=== PATIENT | female | born 1965 | race Caucasian/White ===

== ENCOUNTER 2016-09-16 06:34 | Day surgery (SDC) | payer OTHER ==
[~2016-09-16 06:34] MED LIST: Lactated Ringers 1,000 ML IV SCH
[2016-09-16 06:54] VITALS: O2SAT 100
[2016-09-16] MEDS ORDERED: Lactated Ringers 1,000 ML IV ONE (07:58)
[2016-09-16] MEDS ORDERED: DIPRIVAN 200 MG/20 ML IV ONE (08:00)
[2016-09-16] MEDS ORDERED: Ketamine HCl 50 MG/ML IJ ONE (08:00)
--- NOTE | 2016-09-16 08:05 | OP ---
SURGERY DATE/TIME: 09/16/2016 0723 PREOPERATIVE DIAGNOSES: 1) Diarrhea. 2) Change in bowel habits. POSTOPERATIVE DIAGNOSIS: Melanosis coli otherwise normal colon. PROCEDURE: Colonoscopy. SURGEON: Dr. Moody. ANESTHESIA: MAC. Medications given by anesthesia department. HISTORY: The patient is a 51 year-old white female presenting now for colonoscopic evaluation. She reports that she has been having trouble with diarrhea and at times constipation. She reports that the stools have been so bad that she had fecal incontinence. She dates this back to the time that she had her gallbladder removed. The patient was felt the need to have endoscopic evaluation. She was appraised of the risks of the procedure including the risk of perforation, phlebitis, untoward reaction to medication, bleeding, and missed lesions. The patient verbalized her understanding and desired to have the procedure performed. DESCRIPTION OF PROCEDURE: The patient was placed in left lateral decubitus position. She had continuous pulse oximetry, ECG monitoring, intermittent blood pressure monitoring, and tidal CO2 monitoring during the examination. A digital rectal examination was performed and revealed normal anal sphincter tone and no masses. The flexible Olympus pediatric colonoscope was used to intubate the rectum. A view of the colon was developed sequentially to the cecum. Upon insertion and withdrawal, including a retroflex view in the rectum, there was noted melanosis coli changes but otherwise no other mucosal lesions were noted. The scope was removed from the patient who tolerated the procedure well and was sent back to OP recovery in good condition.
[2016-09-16 10:26] VITALS: BP 109/75; PULSE 76
== END 2016-09-16 09:20 | disposition home or self-care (01) ==
LOC: SDC 06:34
PROVIDERS: ATTEND Family Medicine
PROC: 0DJD8ZZ Inspection of Lower Intestinal Tract, Via Natural or Artificial Opening Endoscopic (ICD-10-PCS; principal; 2016-09-16)
DX: L81.4 Other melanin hyperpigmentation (principal); R19.4 Change in bowel habit
CPT/HCPCS: 00810; J2704

== ENCOUNTER 2018-01-06 14:44 | Emergency (ER) | payer OTHER ==
[2018-01-06] MEDS ORDERED: Phenergan 25 MG INJ IV ONE (15:17)
[2018-01-06] MEDS ORDERED: Sodium Chloride 0.9% 1000 ML 1,000 ML IV STA ×2 (15:17→15:24)
[2018-01-06] MEDS ORDERED: MORPHINE SULFATE 4 MG INJ IV ONE (15:18)
[2018-01-06] MEDS ORDERED: Phenergan 25 MG INJ ONE (15:21)
[2018-01-06] MEDS ORDERED: Sodium Chloride 0.9% 1000 ML 1,000 ML ONE ×2 (15:22→16:09)
[2018-01-06] MEDS ORDERED: MORPHINE SULFATE 4 MG INJ ONE (15:22)
--- NOTE | 2018-01-06 15:24 | ERPHSYRPT ---
- History of Present Illness Time Seen by Provider: 01/06/18 15:11 Historian: patient Exam Limitations: no limitations Patient Subjective Stated Complaint: pt reports diarrhea beginning last night- states it was severe in nature-states that at times she has abd pain that is severe and wraps around her waist-denies pain at thsi itme Triage Nursing Assessment: pt pink warm and [id number] tender to palp-soft- resp easy and nonlabored Physician History: 53-year-old white female with history of migraines, hypothyroidism, diverticulosis, gallbladder disease, arthritis, degenerative disc disease, depression. Arrives with complaint of epigastric pain since this morning. Patient states she began to have frequent bouts of diarrhea last night and this morning she began to have epigastric pain this began around 7:00 this is been intermittent she is not vomiting. Past medical history includes migraines, hypothyroid, diverticulosis, gallbladder disease, arthritis, degenerative disc disease, depression. Past surgical history includes hysterectomy, tubal ligation, lumpectomy, orthopedic surgery, neck surgery 2 (fusion, tonsils. Timing/Duration: today Activities at Onset: none Quality: cramping Abdominal Pain Onset Location: epigastric Pain Radiation: no radiation Severity of Pain-Max: moderate Severity of Pain-Current: mild Modifying Factors: Worsens With: analgesics, antacids, breathing, coughing, defecating, eating, exercise, lying down, movement, palpation, rest, urinating, vomiting, position, walking Associated Symptoms: diarrhea, No back, No chest pain, No diaphoresis, No fever/ chills, No fatigue, No headache, No heartburn, No loss of appetite, No nausea, No neck pain, No rash, No shortness of breath, No syncope, No vomiting, No weakness Previous symptoms: no prior history Allergies/Adverse Reactions: No Known Drug Allergies Allergy (Verified 01/06/18 14:56) Home Medications: Levothyroxine Sodium 50 Mcg [Synthroid 50 Mcg] 50 mcg PO DAILY 09/21/13 [ History] Lorazepam 1 mg [Ativan 1 MG] 1 mg PO HS 09/21/13 [History] Topiramate 100 mg [Topamax 100 MG] 100 mg DAILY 05/10/15 [History] Topiramate [Topamax] 100 mg PO HS 05/10/15 [History] Fluoxetine HCl [Prozac] 60 mg PO DAILY 01/06/18 [History] LORazepam [Lorazepam] 2 mg PO HS 01/06/18 [History] Tizanidine HCl [Zanaflex] 4 mg PO UD 01/06/18 [History] Hx Tetanus, Diphtheria Vaccination/Date Given: No Hx Influenza Vaccination/Date Given: Yes Hx Pneumococcal Vaccination/Date Given: No Immunizations Up to Date: Yes - Review of Systems Constitutional: No Fever, No Chills Eyes: No Symptoms Ears, Nose, & Throat: No Symptoms Respiratory: No Cough, No Dyspnea Cardiac: No Symptoms Abdominal/Gastrointestinal: Abdominal Pain, No Nausea, No Vomiting, No Constipation, No Hematemesis, No Hematochezia, No Melena, No Dysphagia, No Appetite Changes Genitourinary Symptoms: No Dysuria Musculoskeletal: No Back Pain, No Neck Pain Skin: No Rash Neurological: No Dizziness, No Focal Weakness, No Sensory Changes Psychological: No Symptoms Endocrine: No Symptoms All Other Systems: Reviewed and Negative - Past Medical History Pertinent Past Medical History: Yes Neurological History: Migraines ENT History: No Pertinent History Cardiac History: No Pertinent History Respiratory History: No Pertinent History Endocrine Medical History: Hypothyroidism Musculoskeletal History: Arthritis, Degenerative Disk Disease GI Medical History: Diverticulosis, Gallbladder Disease History: Other Psycho-Social History: Depression Female Reproductive Disorders: No Pertinent History Other Medical History: MITRAL VALVE - Past Surgical History Past Surgical History: Yes Neuro Surgical History: No Pertinent History Cardiac: No Pertinent History Respiratory: No Pertinent History Gastrointestinal: Cholecystectomy Genitourinary: No Pertinent History Musculoskeletal: Orthopedic Surgery Female Surgical History: Hysterectomy, Tubal Ligation, Lumpectomy Other Surgical History: TONSILS, 2 NECK FUSIONS - Social History Smoking Status: Never smoker Exposure to second hand smoke: No Drug Use: none Patient Lives Alone: No - Female History Hx Now: No - Nursing Vital Signs Nursing Vital Signs: Initial Vital Signs Temperature 99.3 F 01/06/18 14:52 Pulse Rate 68 01/06/18 14:52 Respiratory Rate 18 01/06/18 14:52 Blood Pressure 125/74 01/06/18 14:52 O2 Sat by Pulse Oximetry 97 01/06/18 14:52 Pain Scale Pain Intensity 2 - Physical Exam General Appearance: mild distress Eye Exam: PERRL/EOMI, eyes nml inspection Ears, Nose, Throat Exam: normal ENT inspection, pharynx normal, moist mucous membranes Neck Exam: normal inspection, non-tender, supple, full range of motion Respiratory Exam: normal breath sounds, lungs clear, No respiratory distress Cardiovascular Exam: regular rate/rhythm (him), normal heart sounds Gastrointestinal/Abdomen Exam: soft, normal bowel sounds, tenderness ( epigastric tenderness), No distention, No mass, No guarding Back Exam: normal inspection, normal range of motion, No CVA tenderness, No vertebral tenderness Extremity Exam: normal inspection, normal range of motion, pelvis stable Neurologic Exam: alert, oriented x 3, cooperative, special delivery worker II-XII nml as tested, normal mood/affect, nml cerebellar function, sensation nml, No motor deficits Skin Exam: normal color, warm, dry SpO2 Interpretation: normal (97%) SpO2: 97 Oxygen Delivery: Room Air - Course Nursing assessment & vital signs reviewed: Yes EKG Interpreted by Me: RATE (69 bpm), Sinus Rhythm, Right Bundle Branch Block, Other (EKG: Sinus rhythm, 69 bpm, normal axis, complete right bundle b no acute ST or T wave changes noted, no acute changes as compared to May 11, 2015) Ordered Tests: Active Orders 24 hr Category Date Time Status EKG-ER Only STAT Care 01/06/18 15:19 Active IV Insertion STAT Care 01/06/18 15:17 Active AMYLASE Stat Lab 01/06/18 15:30 Completed CBC W DIFF Stat Lab 01/06/18 15:30 Completed CMP Stat Lab 01/06/18 15:30 Completed LIPASE Stat Lab 01/06/18 15:30 Completed Lactic Acid Stat Lab 01/06/18 15:23 Completed UA W/RFX UR CULTURE Stat Lab 01/06/18 17:50 Completed Medication Summary Discontinued Medications Generic Name Dose Route Start Last Admin Trade Name Freq PRN Reason Stop Dose Admin Sodium Chloride 1,000 mls @ 999 mls/hr 01/06/18 15:17 01/06/18 15:29 Sodium Chloride 0.9% 1000 Ml IV 01/06/18 16:17 999 mls/hr .Q1H1M STA Administration Sodium Chloride 1,000 mls @ 999 mls/hr 01/06/18 15:24 01/06/18 17:15 Sodium Chloride 0.9% 1000 Ml IV 01/06/18 16:24 999 mls/hr .Q1H1M STA Administration Sodium Chloride Confirm 01/06/18 15:22 Sodium Chloride 0.9% 1000 Ml Administered 01/06/18 15:23 Dose 1,000 mls @ ud .ROUTE .STK-MED ONE Sodium Chloride Confirm 01/06/18 16:09 Sodium Chloride 0.9% 1000 Ml Administered 01/06/18 16:10 Dose 1,000 mls @ ud .ROUTE .STK-MED ONE Morphine Sulfate 4 mg 01/06/18 15:18 01/06/18 15:28 Morphine Sulfate 4 Mg Inj IV 01/06/18 15:19 4 mg STAT ONE Administration Morphine Sulfate Confirm 01/06/18 15:22 Morphine Sulfate 4 Mg Inj Administered 01/06/18 15:23 Dose 4 mg .ROUTE .STK-MED ONE Promethazine HCl 12.5 mg 01/06/18 15:17 01/06/18 15:29 Phenergan 25 Mg Inj IV 01/06/18 15:18 12.5 mg STAT ONE Administration Promethazine HCl Confirm 01/06/18 15:21 Phenergan 25 Mg Inj Administered 01/06/18 15:22 Dose 25 mg .ROUTE .STK-MED ONE Lab/Rad Data: Laboratory Result Diagrams 01/06/18 15:30 01/06/18 15:30 Laboratory Results 01/06/18 01/06/18 01/06/18 Range/Units 17:50 15:30 15:30 WBC 7.2 (4.0-10.5) K/mm3 RBC 4.50 (4.1-5.4) M/mm3 Hgb 13.8 (12.0-16.0) gm/dl Hct 40.8 (35-47) % MCV 90.7 (78-100) fl MCH 30.7 (26-32) pg MCHC 33.8 (32-36) g/dl RDW 13.6 (11.5-14.0) % Plt Count 200 (150-450) K/mm3 MPV 11.9 H (6-9.5) fl Gran % 55.0 (36.0-66.0) % Eos # (Auto) 0.06 (0-0.5) Absolute Lymphs (auto) 2.61 (1.0-4.6) Absolute Monos (auto) 0.59 (0.0-1.3) Lymphocytes % 36.0 (24.0-44.0) % Monocytes % 8.1 (0.0-12.0) % Eosinophils % 0.8 (0.00-5.0) % Basophils % 0.1 (0.0-0.4) % Absolute Granulocytes 3.97 (1.4-6.9) Basophils # 0.01 (0-0.4) Sodium 142 (137-145) mmol/L Potassium 3.6 (3.5-5.1) mmol/L Chloride 110 H (98-107) mmol/L Carbon Dioxide 21 L (22-30) mmol/L Anion Gap 14.0 (5-15) MEQ/L BUN 14 (7-17) mg/dL Creatinine 0.76 (0.52-1.04) mg/dL Estimated GFR > 60.0 ML/MIN Glucose 78 (74-106) mg/dL Lactic Acid (0.4-2.0) Calcium 9.3 (8.4-10.2) mg/dL Total Bilirubin 0.40 (0.2-1.3) mg/dL AST 49 H (14-36) U/L ALT 58 H (0-35) U/L Alkaline Phosphatase 99 (38-126) U/L Serum Total Protein 6.9 (6.3-8.2) g/dL Albumin 4.4 (3.5-5.0) g/dL Amylase 72 (30-110) U/L Lipase 97 (23-300) U/L Ur Collection Type VOID Urine Color YELLOW (YELLOW) Urine Appearance CLEAR (CLEAR) Urine pH 7.0 (5-6) Ur Specific [place] 1.015 (1.005-1.025) Urine Protein NEGATIVE (Negative) Urine Ketones NEGATIVE (NEGATIVE) Urine Blood NEGATIVE (0-5) Maurizio/ul Urine Nitrite NEGATIVE (NEGATIVE) Urine Bilirubin NEGATIVE (NEGATIVE) Urine Urobilinogen NORMAL (0-1) mg/dL Ur Leukocyte Esterase NEGATIVE (NEGATIVE) Urine Culture Reflexed NO (NO) Urine Glucose NEGATIVE (NEGATIVE) mg/dL Specimen Received 01/06 1745 01/06/18 Range/Units 15:23 WBC (4.0-10.5) K/mm3 RBC (4.1-5.4) M/mm3 Hgb (12.0-16.0) gm/dl Hct (35-47) % MCV (78-100) fl MCH (26-32) pg MCHC (32-36) g/dl RDW (11.5-14.0) % Plt Count (150-450) K/mm3 MPV (6-9.5) fl Gran % (36.0-66.0) % Eos # (Auto) (0-0.5) Absolute Lymphs (auto) (1.0-4.6) Absolute Monos (auto) (0.0-1.3) Lymphocytes % (24.0-44.0) % Monocytes % (0.0-12.0) % Eosinophils % (0.00-5.0) % Basophils % (0.0-0.4) % Absolute Granulocytes (1.4-6.9) Basophils # (0-0.4) Sodium (137-145) mmol/L Potassium (3.5-5.1) mmol/L Chloride (98-107) mmol/L Carbon Dioxide (22-30) mmol/L Anion Gap (5-15) MEQ/L BUN (7-17) mg/dL Creatinine (0.52-1.04) mg/dL Estimated GFR ML/MIN Glucose (74-106) mg/dL Lactic Acid 0.9 (0.4-2.0) Calcium (8.4-10.2) mg/dL Total Bilirubin (0.2-1.3) mg/dL AST (14-36) U/L ALT (0-35) U/L Alkaline Phosphatase (38-126) U/L Serum Total Protein (6.3-8.2) g/dL Albumin (3.5-5.0) g/dL Amylase (30-110) U/L Lipase (23-300) U/L Ur Collection Type Urine Color (YELLOW) Urine Appearance (CLEAR) Urine pH (5-6) Ur Specific [place] (1.005-1.025) Urine Protein (Negative) Urine Ketones (NEGATIVE) Urine Blood (0-5) Maurizio/ul Urine Nitrite (NEGATIVE) Urine Bilirubin (NEGATIVE) Urine Urobilinogen (0-1) mg/dL Ur Leukocyte Esterase (NEGATIVE) Urine Culture Reflexed (NO) Urine Glucose (NEGATIVE) mg/dL Specimen Received - Progress Progress: improved Progress Note: 01/06/18 18:14 Patient feeling better after IV morphine and Phenergan and IV fluids. Patient's labs essentially normal. Will go ahead and release patient clear fluids Phenergan. - Departure Time of Disposition: 18:15 Departure Disposition: Home Clinical Impression: Epigastric pain Diarrhea Qualifiers: Diarrhea type: unspecified type Qualified Code(s): R19.7 - Diarrhea, unspecified Condition: Fair Critical Care Time: No Referrals: DILAN JONES MD [Primary Care Provider] - Additional Instructions: Return home. Plenty of fluids. Clear fluids only 24-48 hours if abdominal pain nausea or vomiting. Phenergan 25 mg orally every 4-6 hours as needed for nausea vomiting or abdominal pain. Follow-up with your family doctor if symptoms no better in 24 hours or become worse or persist longer than 48 hours. Return for acute distress or for severe symptoms. norco as prescribed Prescriptions: Hydrocodone/Acetaminophen [[place] 5-325 Tablet] 1 tab PO Q4-6HPRN PRN #10 tablet MDD 6 tablets PRN Reason: Pain Promethazine HCl 25 mg [Phenergan 25 mg] 25 mg PO Q4-6HPRN PRN #12 tablet PRN Reason: nausea, vomiting, abd. pain
[2018-01-06 15:47] LABS: BASOPHIL % 0.1 % (0.0-0.4); Basophil (Absolute #) 0.01 (0-0.4); Eosinophil % 0.8 % (0.00-5.0); Eosinophil (Absolute #) 0.06 (0-0.5); Granulocyte Absolute (ANC) 3.97 (1.4-6.9); Hematocrit 40.8 % (35-47); Hemoglobin 13.8 gm/dl (12.0-16.0); Lymphocyte (Absolute #) 2.61 (1.0-4.6); Mean Cell Volume 90.7 fl (78-100); Mean Corpuscular Hemoglobin 30.7 pg (26-32); Mean Corpuscular Hgb Concent. 33.8 g/dl (32-36); Mean Platelet Volume 11.9 fl (6-9.5); Monocyte (Absolute #) 0.59 (0.0-1.3); Monocytes % 8.1 % (0.0-12.0); Platelet Count 200 K/mm3 (150-450); Red Cell Distribution Width 13.6 % (11.5-14.0); White Blood Count 7.2 K/mm3 (4.0-10.5)
[2018-01-06 16:04] LABS: ALBUMIN 4.4 g/dL (3.5-5.0); ALKALINE PHOSPHATASE 99 U/L (38-126); AMYLASE 72 U/L (30-110); BLOOD UREA NITROGEN 14 mg/dL (7-17); CHLORIDE 110 mmol/L (98-107); Calcium 9.3 mg/dL (8.4-10.2); Carbon Dioxide 21 mmol/L (22-30); Creatinine 1 0.76 mg/dL (0.52-1.04); Glucose 78 mg/dL (74-106); LIPASE 97 U/L (23-300); Potassium 3.6 mmol/L (3.5-5.1); SGOT/AST 49 U/L (14-36); SGPT/ALT 58 U/L (0-35); SODIUM 142 mmol/L (137-145); Total Protein 6.9 g/dL (6.3-8.2)
[2018-01-06 18:00] LABS: Appearance CLEAR (CLEAR); Bilirubin NEGATIVE (NEGATIVE); Blood NEGATIVE Ery/ul (0-5); Glucose NEGATIVE (NEGATIVE); Ketones NEGATIVE (NEGATIVE); Leukocyte Esterase NEGATIVE (NEGATIVE); Nitrite NEGATIVE (NEGATIVE); Protein,Urine Dip NEGATIVE (Negative); Specific Gravity 1.015 (1.005-1.025); Urobilinogen NORMAL mg/dL (0-1)
[2018-01-06 18:44] VITALS: BP 108/74; PULSE 78; O2SAT 100
== END 2018-01-06 18:37 | disposition home or self-care (01) ==
LOC: ED 14:44
DX: R10.13 Epigastric pain (principal); R19.7 Diarrhea, unspecified; Z79.899 Other long term (current) drug therapy
CPT/HCPCS: 36000; 36415; 80053; 81002; 82150; 83605; 83690; 85025; 93005; 96360; 96374; 96375; 99284; J2270; J2550

== ENCOUNTER 2020-05-13 11:45 | Observation (INO) | payer MEDICARE ==
[2020-05-13] MEDS ORDERED: MORPHINE SULFATE 4 MG INJ IV ONE ×2 (11:52→12:31)
[2020-05-13] MEDS ORDERED: Zofran 4 MG/2 ML VIAL IV ONE (11:52)
[2020-05-13] MEDS ORDERED: BABY ASPIRIN 81 MG CHEW PO ONE (11:52)
[2020-05-13] MEDS ORDERED: BABY ASPIRIN 81 MG CHEW ONE (11:56)
[2020-05-13] MEDS ORDERED: Zofran 4 MG/2 ML VIAL ONE (11:56)
[2020-05-13] MEDS ORDERED: MORPHINE SULFATE 4 MG INJ ONE ×2 (11:56→12:21)
[2020-05-13 12:12] LABS: BASOPHIL % 0.5 % (0.0-0.4); Basophil (Absolute #) 0.03 (0-0.4); Eosinophil (Absolute #) 0.18 (0-0.5); Hematocrit 42.1 % (35-47); Hemoglobin 13.4 gm/dl (12.0-16.0); Lymphocyte (Absolute #) 2.62 (1.0-4.6); Lymphocytes % 44.2 % (24.0-44.0); Mean Corpuscular Hemoglobin 30.2 pg (26-32); Mean Corpuscular Hgb Concent. 31.8 g/dl (32-36); Mean Platelet Volume 11.1 fl (7.5-11.0); Monocytes % 5.1 % (0.0-12.0); Neutrophil % 47.2 % (36.0-66.0); Platelet Count 198 K/mm3 (150-450); Red Blood Count 4.43 M/mm3 (4.1-5.4); Red Cell Distribution Width 13.8 % (11.5-14.0); White Blood Count 5.9 K/mm3 (4.0-10.5)
[2020-05-13] MEDS ORDERED: XYLOCAINE HCl Viscous ONE (12:22)
[2020-05-13] MEDS ORDERED: MAALOX ES 30 ML UNIT DOSE ONE (12:22)
[2020-05-13 12:27] LABS: ALBUMIN 4.2 g/dL (3.5-5.0); ALKALINE PHOSPHATASE 76 U/L (38-126); ANION GAP 10.7 MEQ/L (5-15); BLOOD UREA NITROGEN 15 mg/dL (7-17); CHLORIDE 111 mmol/L (98-107); Calcium 9.5 mg/dL (8.4-10.2); Carbon Dioxide 24 mmol/L (22-30); Creatinine 1 0.91 mg/dL (0.52-1.04); EST GLOMERULAR FILTRATION RATE > 60.0 ML/MIN; Glucose 96 mg/dL (74-106); NT PRO BNP 46.8 pg/mL (0-900); SGOT/AST 45 U/L (14-36); SGPT/ALT 33 U/L (0-35); SODIUM 142 mmol/L (137-145); Total Protein 7.1 g/dL (6.3-8.2)
[2020-05-13] MEDS ORDERED: GI COCKTAIL 45 ML (Maalox/Lidocaine) PO ONE (12:31)
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
[2020-05-13] MEDS ORDERED: Sodium Chloride 0.9% 1000 ML 1,000 ML IV STA (12:48)
[2020-05-13] MEDS ORDERED: PROTONIX 40 MG IV IV ONE ×2 (12:48→12:52)
[2020-05-13] MEDS ORDERED: Reglan 10 MG/2 ML IV ONE (12:48)
[2020-05-13] MEDS ORDERED: Sodium Chloride 0.9% 1000 ML 1,000 ML ONE (12:48)
[2020-05-13] MEDS ORDERED: Reglan 10 MG/2 ML ONE (12:52)
[2020-05-13] MEDS ORDERED: Ativan 2 MG/1 ML VIAL ONE (12:57)
[2020-05-13] MEDS ORDERED: Ativan 2 MG/1 ML VIAL IV ONE (13:02)
[2020-05-13] MEDS ORDERED: Sodium Chloride 0.9% 1000 ML 1,000 ML IV SCH (15:21)
[2020-05-13] MEDS ORDERED: TYLENOL 325 MG PO PRN (15:21)
[2020-05-13] MEDS ORDERED: Zofran 4 MG/2 ML VIAL IV PRN (16:53)
[2020-05-13] MEDS ORDERED: MORPHINE SULFATE 4 MG INJ IV PRN (17:08)
--- NOTE | 2020-05-13 18:54 | XRAY ---
Indication: Chest pain. Comparison: May 10, 2015. Portable chest again demonstrates normal heart and lungs. Bony thorax intact with stable mild dextroscoliosis. No new/acute findings.
--- NOTE | 2020-05-13 18:54 | XRAY ---
Indication: Chest/epigastric pain. Nausea and diarrhea. Multiple contiguous axial images obtained through the chest using 80 cc of Isovue 370 contrast and PE protocol. Comparison: CT chest without contrast June 01, 2017. There is good opacification of the pulmonary arteries including lobar and segmental branches. No pulmonary embolus. Heart is not enlarged. Aorta is normal in course and caliber without aneurysm/dissection. No pathologic mediastinal/hilar lymphadenopathy. New small hiatal hernia. Lungs inflated and remain clear. Bony thorax intact again with mild double curvature thoracolumbar scoliosis. CT abdomen/pelvis reported separately. Impression: Negative pulmonary embolus. New small hiatal hernia. Remaining CT chest with contrast exam is negative. Comment: Preliminary interpretation was made by C. No critical discrepancy.
--- NOTE | 2020-05-13 19:02 | XRAY ---
Indication: Chest/epigastric pain. Nausea and diarrhea. Multiple contiguous axial images obtained through the abdomen and pelvis using 80 cc of Isovue 370 contrast only. Comparison: June 13, 2013. CT chest reported separately. Noncontrasted stomach and bowel loops appear nonobstructed. Normal appendix. Mild fluid distended colon throughout with fluid leveling favoring diarrhea. A few descending diverticulosis. Stable hysterectomy with interval cholecystectomy. No free fluid/air. Enlarging 1.5 cm left upper renal cyst previously 7 mm. Remaining liver, pancreas, spleen, adrenal glands, kidneys, ureters, and bladder appear unremarkable. Minimal aortic calcifications. No AAA or pathological retroperitoneal lymphadenopathy. Osseous structures intact with mild double curvature thoracolumbar scoliosis. Impression: 1. Mild fluid distended colon with fluid leveling favoring diarrhea. 2. Incidental colonic diverticulosis and left renal cyst. 3. Remaining CT abdomen/pelvis with contrast exam is negative. Comment: Preliminary interpretation was made by [facility]. No critical discrepancy.
[2020-05-13] MEDS ORDERED: BENADRYL 25 MG CAPSULE PO SCH (22:00)
[2020-05-13] MEDS ORDERED: TOPIRAMATE PO SCH (22:00)
[2020-05-13] MEDS ORDERED: Ativan 1 MG PO SCH (22:00)
[2020-05-13] MEDS ORDERED: Seroquel 100 MG PO SCH (22:00)
[2020-05-13] MEDS ORDERED: Pepcid 20 MG VIAL IV SCH (22:00)
[2020-05-14 00:35] LABS: ALBUMIN 3.3 g/dL (3.5-5.0); ALKALINE PHOSPHATASE 73 U/L (38-126); ANION GAP 7.1 MEQ/L (5-15); BLOOD UREA NITROGEN 11 mg/dL (7-17); CHLORIDE 115 mmol/L (98-107); Calcium 8.6 mg/dL (8.4-10.2); Carbon Dioxide 23 mmol/L (22-30); Creatinine 1 0.74 mg/dL (0.52-1.04); EST GLOMERULAR FILTRATION RATE > 60.0 ML/MIN; Glucose 84 mg/dL (74-106); Potassium 4.1 mmol/L (3.5-5.1); SGOT/AST 82 U/L (14-36); SGPT/ALT 56 U/L (0-35); SODIUM 141 mmol/L (137-145); Total Protein 5.5 g/dL (6.3-8.2)
[2020-05-14 00:54] LABS: Absolute Neutrophil Ct (ANC) 3.85 (1.4-6.9); BASOPHIL % 0.3 % (0.0-0.4); Basophil (Absolute #) 0.02 (0-0.4); Eosinophil % 1.9 % (0.00-5.0); Eosinophil (Absolute #) 0.13 (0-0.5); Hematocrit 37.2 % (35-47); Hemoglobin 11.9 gm/dl (12.0-16.0); Lymphocyte (Absolute #) 2.55 (1.0-4.6); Lymphocytes % 36.3 % (24.0-44.0); Mean Cell Volume 95.4 fl (78-100); Mean Corpuscular Hemoglobin 30.5 pg (26-32); Mean Platelet Volume 11.5 fl (7.5-11.0); Monocyte (Absolute #) 0.47 (0.0-1.3); Monocytes % 6.7 % (0.0-12.0); Neutrophil % 54.8 % (36.0-66.0); Platelet Count 164 K/mm3 (150-450); Red Cell Distribution Width 13.7 % (11.5-14.0)
[2020-05-14 07:12] VITALS: BP 102/62; PULSE 84; O2SAT 93
[2020-05-14] MEDS ORDERED: SYNTHROID 75 MCG PO SCH (10:00)
[2020-05-14] MEDS ORDERED: THERAGRAN MULTIVITAMIN PO SCH (10:00)
[2020-05-14] MEDS ORDERED: Paxil 20 MG PO SCH (10:00)
[2020-05-14] MEDS ORDERED: SYNTHROID 50 MCG PO SCH (10:00)
[2020-05-14] MEDS ORDERED: Paxil 12.5MG CR PO SCH (10:00)
--- NOTE | 2020-05-15 13:53 | SSS ---
DISCHARGE DIAGNOSIS: CHEST PAIN. HISTORY: The patient is a 55 year old white female who reports she developed chest pain at [facility] that became quite severe. She presented to the emergency room at which time it was actually worsening. The patient was received GI cocktails and two different doses of morphine. Afterwards the patient reported the pain resolved and she has not had any since that time. The patient reports she had seen Dr. Orellana two years ago for similar episode of chest pain but had no issues until approximately three or four days ago when she had another episode that did not last as long although similar chest pain. PAST MEDICAL HISTORY: Essentially significant for hypothyroid, history of migraine headaches, anxiety and depression. HOME MEDICATIONS: Synthroid 75 mcg daily, Topamax 100 mg daily and at night another 100 mg, Zanaflex 4 mg, lorazepam 1 mg t.i.d., paroxetine that she takes 1 pills to equal 25 mg on a daily basis. ALLERGIES: NKDA. PHYSICAL EXAMINATION: The patient's vital signs on admission showed her temperature to be 97.9F, pulse 74, respiratory rate 18, blood pressure 120/86. HEENT: Normocephalic, atraumatic. Pupils equal round reactive to light. Extraocular movements intact. Oropharynx is pink and moist. NECK: Supple without lymphadenopathy, thyromegaly or JVD. CHEST: Clear to auscultation. HEART: Regular rate and rhythm without murmurs, rubs or gallops. ABDOMEN: Soft. No palpable masses. EXTREMITIES: Without cyanosis, clubbing or edema. NEUROLOGIC: The patient is alert and oriented x3. LAB DATA AND TESTS: Laboratory studies have shown five troponins all less than 0.012. Metabolic panel showing essentially BUN 11, creatinine 0.74, sugar 84. Electrolytes were essentially normal. Total protein somewhat low at 5.5. Liver enzymes were slightly elevated with AST 82 and ALT 56. Her CBC was normal with a white count 7,000, hemoglobin 11.9, PLT count 164,000. COVID test was negative. She had a lipase within normal range. She had CT scan of abdomen and pelvis performed which showed fluid distended colon with fluid leveling favoring diarrhea, incidental colonic diverticulosis, left renal cyst. Repeat CT abdomen and pelvis was negative. She had chest x-ray that was normal. CT chest which was performed also which was essentially negative for pulmonary embolism and otherwise essentially negative. Her rhythm strip showed normal sinus rhythm. EKG showed left ventricular conduction delay of right bundle branch type with no acute ST-T wave changes otherwise. HOSPITAL COURSE: The patient is admitted to the medicine day. She received no other medications. She has been essentially chest pain free since admission. By this morning the patient is feeling ready to go home again. She is instructed to follow up with Dr. Muse, her regular doctor, and to see Dr. Orellana as soon as possible for further evaluation and management.
== END 2020-05-14 09:49 | disposition home or self-care (01) ==
LOC: ED 11:45 → MED SURG 15:12
PROVIDERS: ADMIT General Practice; ATTEND General Practice
DX: R07.9 Chest pain, unspecified (principal); Z79.899 Other long term (current) drug therapy; E03.9 Hypothyroidism, unspecified; K52.9 Noninfective gastroenteritis and colitis, unspecified
CPT/HCPCS: 36000; 36415; 71045; 71260; 74177; 80053; 83690; 83880; 84484; 85025; 85379; 93005; 93041; 93268; 96360; 96374; 96375; 96376; 99285; 99291; G0378; U0003; J2060; J2270; J2405; A9270-GY

== ENCOUNTER 2022-03-17 13:56 | Emergency (ER) | payer MEDICARE, OTHER ==
[2022-03-17] MEDS ORDERED: Sodium Chloride 0.9% 1000 ML 1,000 ML IV STA (14:00)
[2022-03-17 14:31] LABS: Absolute Neutrophil Ct (ANC) 3.81 x10^3/uL (1.4-6.9); Basophil (Absolute #) 0.06 x10^3/uL (0-0.4); Eosinophil % 2.5 % (0.00-5.0); Eosinophil (Absolute #) 0.18 x10^3/uL (0-0.5); Hematocrit 35.3 % (35-47); Hemoglobin 10.9 g/dL (12.0-16.0); Lymphocyte (Absolute #) 2.62 x10^3/uL (1.0-4.6); Lymphocytes % 36.2 % (24.0-44.0); Mean Cell Volume 88.9 fL (78-100); Mean Corpuscular Hemoglobin 27.5 pg (26-32); Mean Corpuscular Hgb Concent. 30.9 g/dL (32-36); Mean Platelet Volume 10.8 fL (7.5-11.0); Monocyte (Absolute #) 0.49 x10^3/uL (0.0-1.3); Monocytes % 6.8 % (0.0-12.0); Neutrophil % 52.7 % (36.0-66.0); Platelet Count 208 x10^3/uL (150-450); Red Blood Count 3.97 x10^6/uL (4.1-5.4); Red Cell Distribution Width 14.4 % (11.5-14.0); White Blood Count 7.2 x10^3/uL (4.0-10.5)
[2022-03-17 14:41] LABS: ALBUMIN 3.7 g/dL (3.5-5.0); ALKALINE PHOSPHATASE 102 U/L (38-126); AMYLASE 69 U/L (30-110); ANION GAP 9.5 MEQ/L (5-15); BLOOD UREA NITROGEN 17 mg/dL (7-17); CHLORIDE 109 mmol/L (98-107); Calcium 8.4 mg/dL (8.4-10.2); Carbon Dioxide 24 mmol/L (22-30); Creatinine 1 0.74 mg/dL (0.52-1.04); EST GLOMERULAR FILTRATION RATE > 60.0 ML/MIN; Glucose 118 mg/dL (74-106); LIPASE 94 U/L (23-300); SGOT/AST 31 U/L (14-36); SGPT/ALT 22 U/L (0-35); SODIUM 139 mmol/L (137-145); Total Protein 6.4 g/dL (6.3-8.2)
[2022-03-17] MEDS ORDERED: Sodium Chloride 0.9% 1000 ML 1,000 ML ONE (14:46)
[2022-03-17] MEDS ORDERED: Zofran 4 MG/2 ML VIAL IV ONE (14:57)
[2022-03-17] MEDS ORDERED: Hydromorphone 1 mg/ml Injection IV ONE ×2 (14:57→15:49)
[2022-03-17] MEDS ORDERED: Zofran 4 MG/2 ML VIAL ONE (14:59)
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
[2022-03-17] MEDS ORDERED: Hydromorphone 1 mg/ml Injection ONE ×2 (15:00→15:49)
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
[2022-03-17 15:40] VITALS: BP 136/89
[2022-03-17 16:38] LABS: Appearance CLEAR (CLEAR)
[2022-03-17 16:39] LABS: Bilirubin NEGATIVE (NEGATIVE); Dipstick done @ ? MAIN LAB; Glucose NEGATIVE (NEGATIVE); Ketones NEGATIVE (NEGATIVE); Nitrite NEGATIVE (NEGATIVE); Protein,Urine Dip NEGATIVE (Negative); RBC NEGATIVE Ery/ul (0-5); Specific Gravity 1.015 (1.005-1.025); Urobilinogen 0.2 mg/dL (0-1)
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
[2022-03-17 16:47] LABS: Mucus SLIGHT /HPF (NEGATIVE)
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
[2022-03-17 16:48] LABS: Urine Cultured Indicated? NO
[2022-03-17 16:53] VITALS: PULSE 105; O2SAT 98
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
== END 2022-03-17 17:49 | disposition home or self-care (01) ==
LOC: ED 13:56
DX: S30.1XXA Contusion of abdominal wall, initial encounter (principal); S40.011A Contusion of right shoulder, initial encounter; S20.219A Contusion of unspecified front wall of thorax, initial encounter; V43.52XA Car driver injured in collision with other type car in traffic accident, initial encounter; Y92.411 Interstate highway as the place of occurrence of the external cause; M54.2 Cervicalgia; R51.9 Headache, unspecified; Z79.899 Other long term (current) drug therapy; Z79.891 Long term (current) use of opiate analgesic
CPT/HCPCS: 36415; 70450; 71045; 71260; 72125; 73030; 74177; 80053; 81015; 82150; 83690; 84484; 85025; 93005; 96360; 96374; 96375; 96376; 99285; J1170; J2405

== ENCOUNTER 2023-03-03 09:38 | Day surgery (SDC) | payer MEDICARE ==
[~2023-03-03 09:38] MED LIST changes: +Ak-Dilate OPHTHALMIC*** 1.065 ML, Cyclogyl 1% OPHTH SOL 1.065 ML, GATIFLOXACIN 0.5% OPH... OP ONE; +BETADINE 5% OPHTHALMIC 30 ML OP ONE; +NON-FORMULARY ITEM OP ONE; +TETRACAINE 0.5% STERI-UNIT SOL OP ONE; +cefUROXime sodium 0.005 GM in Sodium Chloride Flush 30 ML*** 0.5 ML IJ ONE
[2023-03-03] MEDS ORDERED: Epinephrine Preservative Free 1 MG/ML IJ ONE (09:39)
[2023-03-03] MEDS ORDERED: Lactated Ringers 1,000 ML IV ONE (09:54)
[2023-03-03] MEDS ORDERED: Zofran 4 MG/2 ML VIAL IV PRN (11:30)
[2023-03-03] MEDS ORDERED: ACETAZOLAMIDE 250 MG TABLET PO ONE (11:30)
[2023-03-03] MEDS ORDERED: DIPRIVAN 200 MG/20 ML IV ONE ×2 (12:59→13:04)
[2023-03-03] MEDS ORDERED: Xylocaine-Mpf 2% 5 Ml Vial ONE (12:59)
[2023-03-03] MEDS ORDERED: Versed 2 MG/2 ML Injection ONE (13:01)
[2023-03-03 13:32] VITALS: TEMP 97.4
[2023-03-03 13:36] VITALS: RESP 16
[2023-03-03] MEDS ORDERED: Zofran 4 MG/2 ML VIAL ONE (13:37)
[2023-03-03 13:41] VITALS: O2SAT 99
[2023-03-03 13:46] VITALS: BP 118/83; PULSE 80
== END 2023-03-03 13:51 | disposition home or self-care (01) ==
LOC: SDC 09:38
PROVIDERS: ATTEND Ophthalmology
DX: H25.812 Combined forms of age-related cataract, left eye (principal)
CPT/HCPCS: J0171; J2250; J2405; J2704; A9270-GY

== ENCOUNTER 2023-03-31 07:28 | Day surgery (SDC) | payer MEDICARE ==
[2023-03-31] MEDS ORDERED: Lactated Ringers 1,000 ML IV ONE (07:54)
[2023-03-31] MEDS ORDERED: ACETAZOLAMIDE 250 MG TABLET PO ONE (09:30)
[2023-03-31] MEDS ORDERED: Zofran 4 MG/2 ML VIAL IV PRN (09:30)
[2023-03-31] MEDS ORDERED: DIPRIVAN 200 MG/20 ML IV ONE (09:52)
[2023-03-31] MEDS ORDERED: Versed 2 MG/2 ML Injection ONE (09:52)
[2023-03-31] MEDS ORDERED: SUBLIMAZE 100 MCG/2 ML ONE (10:00)
[2023-03-31] MEDS ORDERED: Epinephrine Preservative Free 1 MG/ML IJ ONE (10:00)
[2023-03-31 10:20] VITALS: RESP 16
[2023-03-31] MEDS ORDERED: Zofran 4 MG/2 ML VIAL ONE (10:21)
[2023-03-31 10:26] VITALS: BP 145/90; PULSE 95; TEMP 98.6; O2SAT 93
== END 2023-03-31 10:33 | disposition home or self-care (01) ==
LOC: SDC 07:28
PROVIDERS: ATTEND Ophthalmology
DX: H25.811 Combined forms of age-related cataract, right eye (principal)
CPT/HCPCS: C1780; J0171; J2250; J2405; J2704; J3010; A9270-GY

== ENCOUNTER 2025-04-01 14:17 | Observation (INO) | payer MEDICARE ==
--- NOTE | 2025-04-01 14:34 | ERPHSYRPT ---
- History of Present Illness Time Seen by Provider: 04/01/25 14:29 Source: patient, family Exam Limitations: no limitations Physician History: Pt has SObreath and persisting cough after Flu 2 weeks ago, with fever and nausea, previously Covid negative - sent over from [facility] today due to weakness and CP as well - Non-smoker. No hx CAD. 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 - Some diarrhea recently - she had course of Tamiflu. HR 116 pulse Ox still 98 % on RA but tachypneic. She felt weak and dizzy like presyncopal with palpitations. Not able to eat or sleep past few days. Discussed with pt and available family risks and benefits of testing/Tx including CBC, CMP, EKG, Trop, BNP, D-dimer, UA, CT angio PE protocol, swabs for Covid, RSV, Flu and Strep, breathing Tx, IVF rehydration, steroids, T4/TSH, Antibiotic and they wish to proceed so these are ordered. Results discussed with pt and available family Pt and family were advised of the limitations of the testing and Tx performed today in this setting and that we have not yet determined a precise cause for their symptoms and there still could be additional pathology of a serious nature evolving undetected. They voice their understanding and wish to choose outpatient f/u rather than further testing in ER or admission to hospital or transfer at this time and they have the capacity to make this choice. Timing/Duration: day(s), worse Cough Quality/Degree: dry cough Possible Cause: no prior episodes Modifying Factors: Improves With: coughing Associated Symptoms: fever, chest pain/soreness, cough, shortness of breath Allergies/Adverse Reactions: prochlorperazine [From Compazine] Adverse Reaction (Intermediate, Verified 04/01/25 14:31) restless leg Home Medications: Diclofenac Sodium 25 mg PO BID 05/13/20 [History] LORazepam [Lorazepam] 1 mg PO HS 05/13/20 [History] PARoxetine HCL [Paxil] 10 mg PO BID 05/13/20 [History] Quetiapine Fumarate 150 mg PO HS 05/13/20 [History] Levothyroxine Sodium 75 Mcg [Synthroid 75 Mcg] 75 mcg PO DAILY 02/20/23 [History] Tizanidine HCl 6 mg PO HS 02/20/23 [History] Galcanezumab-Gnlm [Emgality Syringe] 100 mg SQ UD 03/03/23 [History] Ubrogepant [Ubrelvy] 100 mg PO UD PRN 03/03/23 [History] Hx Tetanus, Diphtheria Vaccination/Date Given: No Hx Influenza Vaccination/Date Given: Yes Hx Pneumococcal Vaccination/Date Given: No - Review of Systems Constitutional: Fever, Fatigue, Malaise, Weakness, No Chills Eyes: No Symptoms Ears, Nose, & Throat: No Symptoms Respiratory: Cough, Dyspnea, Dyspnea on Exertion (DUNLAP) Cardiac: Chest Pain, No Edema, No Syncope Abdominal/Gastrointestinal: Nausea, Diarrhea, No Abdominal Pain, No Vomiting Genitourinary Symptoms: No Dysuria Musculoskeletal: Myalgias, No Back Pain, No Neck Pain Skin: No Rash Neurological: No Dizziness, No Focal Weakness, No Sensory Changes Psychological: No Symptoms Endocrine: No Symptoms Hematologic/Lymphatic: No Symptoms Immunological/Allergic: No Symptoms All Other Systems: Reviewed and Negative - Past Medical History Pertinent Past Medical History: Yes Neurological History: Migraines ENT History: No Pertinent History Cardiac History: No Pertinent History Respiratory History: No Pertinent History Endocrine Medical History: Hypothyroidism Musculoskeletal History: Arthritis, Degenerative Disk Disease GI Medical History: Diverticulosis, Gallbladder Disease History: Other Psycho-Social History: Anxiety, Depression Female Reproductive Disorders: No Pertinent History Other Medical History: MITRAL VALVE - Past Surgical History Past Surgical History: Yes Neuro Surgical History: No Pertinent History Cardiac: No Pertinent History Respiratory: No Pertinent History Gastrointestinal: Cholecystectomy Genitourinary: No Pertinent History Musculoskeletal: Orthopedic Surgery Female Surgical History: Lumpectomy, Hysterectomy, Tubal Ligation Other Surgical History: TONSILS, 2 NECK FUSIONS - Social History Smoking Status: Never smoker Exposure to second hand smoke: No - Nursing Vital Signs Nursing Vital Signs: Initial Vital Signs Temperature 98.2 F 04/01/25 14:18 Pulse Rate 112 H 04/01/25 14:18 Respiratory Rate 20 04/01/25 14:18 O2 Sat by Pulse Oximetry 98 04/01/25 14:18 Pain Scale Pain Intensity 0 - Physical Exam General Appearance: no apparent distress, alert Eye Exam: PERRL/EOMI, eyes nml inspection Ears, Nose, Throat Exam: normal ENT inspection, TMs normal, pharynx normal, moist mucous membranes Neck Exam: normal inspection, non-tender, supple, full range of motion Respiratory Exam: normal breath sounds, crackles/rales, rhonchi, No respiratory distress, No diminished breath sounds, No accessory muscle use, No stridor Cardiovascular Exam: regular rate/rhythm, normal heart sounds Gastrointestinal/Abdomen Exam: soft, No tenderness, No distention, No mass, No guarding, No pulsatile mass, No rebound Pelvic Exam: deferred Rectal Exam: deferred Back Exam: normal inspection, No CVA tenderness, No vertebral tenderness Extremity Exam: normal inspection, normal range of motion Neurologic Exam: alert, oriented x 3, cooperative, normal mood/affect, sensation nml, No motor deficits Skin Exam: normal color, warm, dry, No rash Lymphatic Exam: No adenopathy SpO2 Interpretation: normal SpO2: 98 - Course Nursing assessment & vital signs reviewed: Yes EKG Interpreted by Me: Sinus Tach, Left [place] Deviation, Right Bundle Branch Block, Non-specific ST Changes, Other (LPFB) - CT Exams Chest CT Interpretation: Tele-radiologist Report, No PE, Other (renal calc and cyst, general breast density for f/u, ) Ordered Tests: Active Orders 24 hr Category Date Time Status EKG-ER Only STAT Care 04/01/25 14:39 Active IV Insertion STAT Care 04/01/25 14:39 Active CHEST WITH CONTRAST [CT] Stat Exams 04/01/25 14:38 Completed BLOOD CULTURE Stat Lab 04/01/25 15:59 Received CBC W DIFF Stat Lab 04/01/25 14:35 Completed CMP Stat Lab 04/01/25 14:35 Completed CULTURE,URINE Stat Lab 04/01/25 14:39 Received D-DIMER QUANTITATIVE Stat Lab 04/01/25 14:35 Completed LIPASE Stat Lab 04/01/25 14:35 Completed Lactic Acid Stat Lab 04/01/25 14:50 Completed NT PRO BNPII Stat Lab 04/01/25 14:35 Completed TROPONIN Q4H Lab 04/01/25 14:35 Completed TROPONIN Q4H Lab 04/01/25 18:45 Ordered TROPONIN Q4H Lab 04/01/25 22:45 Ordered TSH [TSH, 3RD Generation] Stat Lab 04/01/25 14:35 Completed UA W/RFX UR CULTURE Stat Lab 04/01/25 14:39 Completed Respiratory Therapy Assessment DAILY RT 04/01/25 16:12 Active Medication Summary Generic Name Dose Route Start Last Admin Trade Name Eliezer PRN Reason Stop Dose Admin Sodium Chloride 1,000 mls @ 999 mls/hr 04/01/25 16:03 04/01/25 16:04 Sodium Chloride 0.9% 1000 Ml IV 04/01/25 17:03 999 mls/hr .Q1H1M STA Administration Discontinued Medications Generic Name Dose Route Start Last Admin Trade Name Eliezer PRN Reason Stop Dose Admin Albuterol/Ipratropium 3 ml 04/01/25 15:49 04/01/25 16:09 Ipratropium/Albuterol Sulfate 3 Ml Ampul.Neb IH 04/01/25 15:50 3 ml STAT ONE Administration Albuterol/Ipratropium Confirm 04/01/25 15:52 Ipratropium/Albuterol Sulfate 3 Ml Ampul.Neb Administered 04/01/25 15:53 Dose 3 ml IH .STK-MED ONE Methylprednisolone Sodium 0 mg 04/01/25 15:49 04/01/25 16:03 Succinate 125 mg/ Sterile IV 04/01/25 15:50 125 mg Water 2 ml STAT ONE Administration Sodium Chloride Confirm 04/01/25 14:38 Sodium Chloride 0.9% 1000 Ml Administered 04/01/25 14:39 Dose 1,000 mls @ ud .ROUTE .STK-MED ONE Ceftriaxone Sodium Confirm 04/01/25 14:38 Rocephin 1 Gm / 100 Ml Nacl Administered 04/01/25 14:39 Dose 1 gm in 100 mls @ ud IV .STK-MED ONE Sodium Chloride 1,000 mls @ 999 mls/hr 04/01/25 14:39 04/01/25 15:30 Sodium Chloride 0.9% 1000 Ml IV 04/01/25 15:39 Infused .Q1H1M STA Infusion Ceftriaxone Sodium 1 gm in 100 mls @ 200 mls/hr 04/01/25 14:44 04/01/25 15:31 Rocephin 1 Gm / 100 Ml Nacl IV 04/01/25 15:13 Infused STAT ONE Infusion Sodium Chloride Confirm 04/01/25 15:58 Sodium Chloride 0.9% 1000 Ml Administered 04/01/25 15:59 Dose 1,000 mls @ ud .ROUTE .STK-MED ONE Methylprednisolone Sodium Succinate Confirm 04/01/25 15:58 Methylprednis Sod Succ 125 Mg/2 Ml Vial Administered 04/01/25 15:59 Dose 125 mg .ROUTE .STK-MED ONE Ondansetron HCl 4 mg 04/01/25 14:39 04/01/25 14:45 Ondansetron Hcl 4 Mg/2 Ml Vial IV 04/01/25 14:40 4 mg STAT ONE Administration Ondansetron HCl Confirm 04/01/25 14:45 Ondansetron Hcl 4 Mg/2 Ml Vial Administered 04/01/25 14:46 Dose 4 mg .ROUTE .STK-MED ONE Sterile Water Confirm 04/01/25 15:58 Water For Injection,Sterile 10 Ml Vial Administered 04/01/25 15:59 Dose 10 ml IJ .STK-MED ONE Lab/Rad Data: Laboratory Result Diagrams 04/01/25 14:35 04/01/25 14:35 Laboratory Results 04/01/25 04/01/25 04/01/25 Range/Units 14:59 14:59 14:50 WBC (3.98-10.04) x10^3/uL RBC (3.93-5.22) x10^6/uL Hgb (11.2-15.7) g/dL Hct (34.1-44.9) % MCV (79.4-94.8) fL MCH (25.6-32.2) pg MCHC (32.2-35.5) g/dL RDW (11.7-14.4) % Plt Count (182-369) x10^3/uL MPV (9.4-12.3) fL Gran % (34.0-71.1) % Immature Gran % (Auto) (0.001-0.429) % Nucleat RBC Rel Count (0.00-0.2) % Eos # (Auto) (0.04-0.36) x10^3/uL Immature Gran # (Auto) (0.001-0.031) x10^3u/L Absolute Lymphs (auto) (1.18-3.74) x10^3/uL Absolute Monos (auto) (0.24-0.86) x10^3/uL Absolute Nucleated RBC (0.00-0.012) x10^3u/L Lymphocytes % (19.3-51.7) % Monocytes % (4.7-12.5) % Eosinophils % (0.7-5.8) % Basophils % (0.1-1.2) % Absolute Granulocytes (1.56-6.13) x10^3/uL Basophils # (0.01-0.08) x10^3/uL D-Dimer (0.0-0.50) mg/L Sodium (135-145) mmol/L Potassium (3.5-5.1) mmol/L Chloride (98-107) mmol/L Carbon Dioxide (22-30) mmol/L Anion Gap (5-15) MEQ/L BUN (7-17) mg/dL Creatinine (0.52-1.04) mg/dL Estimated GFR ML/MIN Glucose (74-106) mg/dL Lactic Acid 1.1 (0.4-2.0) Calcium (8.4-10.2) mg/dL Total Bilirubin (0.2-1.3) mg/dL AST (14-36) U/L ALT (0-35) U/L Alkaline Phosphatase (38-126) U/L Troponin I (0.000-0.033) ng/mL NT-Pro-B Natriuret Pep (<300) pg/mL Serum Total Protein (6.3-8.2) g/dL Albumin (3.5-5.0) g/dL Lipase (23-300) U/L Free T4 (0.78-2.19) ng/dL TSH 3rd Generation (0.470-4.680) mIU/L Urine Color (Yellow) Urine Appearance (Clear) Urine pH (4.6-8.0) Ur Specific [place] (1.005-1.030) Urine Protein (Negative) Urine Glucose (UA) (Negative) mg/dL Urine Ketones (Negative) Urine Blood (Negative) Urine Nitrite (Negative) Urine Bilirubin (Negative) Urine Urobilinogen (0.2) mg/dL Ur Leukocyte Esterase (Negative) U Hyaline Cast (Auto) (0-2) /LPF Urine Microscopic RBC (0-5) /HPF Urine Microscopic WBC (0-5) /HPF Ur Epithelial Cells (None Seen) /HPF Urine Bacteria (None Seen) /HPF Urine Culture Reflexed (NO) Influenza Type A Ag NEGATIVE (NEGATIVE) Influenza Type B Ag NEGATIVE (NEGATIVE) RSV (PCR) NEGATIVE (NEGATIVE) SARS-CoV-2 (PCR) NEGATIVE (NEGATIVE) Group A Strep Antibody NOT DETECTED (NEGATIVE) 04/01/25 04/01/25 04/01/25 Range/Units 14:39 14:35 14:35 WBC (3.98-10.04) x10^3/uL RBC (3.93-5.22) x10^6/uL Hgb (11.2-15.7) g/dL Hct (34.1-44.9) % MCV (79.4-94.8) fL MCH (25.6-32.2) pg MCHC (32.2-35.5) g/dL RDW (11.7-14.4) % Plt Count (182-369) x10^3/uL MPV (9.4-12.3) fL Gran % (34.0-71.1) % Immature Gran % (Auto) (0.001-0.429) % Nucleat RBC Rel Count (0.00-0.2) % Eos # (Auto) (0.04-0.36) x10^3/uL Immature Gran # (Auto) (0.001-0.031) x10^3u/L Absolute Lymphs (auto) (1.18-3.74) x10^3/uL Absolute Monos (auto) (0.24-0.86) x10^3/uL Absolute Nucleated RBC (0.00-0.012) x10^3u/L Lymphocytes % (19.3-51.7) % Monocytes % (4.7-12.5) % Eosinophils % (0.7-5.8) % Basophils % (0.1-1.2) % Absolute Granulocytes (1.56-6.13) x10^3/uL Basophils # (0.01-0.08) x10^3/uL D-Dimer < 0.19 (0.0-0.50) mg/L Sodium (135-145) mmol/L Potassium (3.5-5.1) mmol/L Chloride (98-107) mmol/L Carbon Dioxide (22-30) mmol/L Anion Gap (5-15) MEQ/L BUN (7-17) mg/dL Creatinine (0.52-1.04) mg/dL Estimated GFR ML/MIN Glucose (74-106) mg/dL Lactic Acid (0.4-2.0) Calcium (8.4-10.2) mg/dL Total Bilirubin (0.2-1.3) mg/dL AST (14-36) U/L ALT (0-35) U/L Alkaline Phosphatase (38-126) U/L Troponin I (0.000-0.033) ng/mL NT-Pro-B Natriuret Pep (<300) pg/mL Serum Total Protein (6.3-8.2) g/dL Albumin (3.5-5.0) g/dL Lipase (23-300) U/L Free T4 (0.78-2.19) ng/dL TSH 3rd Generation 0.663 (0.470-4.680) mIU/L Urine Color Yellow (Yellow) Urine Appearance Cloudy A (Clear) Urine pH 5.5 (4.6-8.0) Ur Specific [place] 1.020 (1.005-1.030) Urine Protein Negative (Negative) Urine Glucose (UA) Negative (Negative) mg/dL Urine Ketones Trace A (Negative) Urine Blood Negative (Negative) Urine Nitrite Negative (Negative) Urine Bilirubin Negative (Negative) Urine Urobilinogen 1.0 A (0.2) mg/dL Ur Leukocyte Esterase Negative (Negative) U Hyaline Cast (Auto) 3-5 A (0-2) /LPF Urine Microscopic RBC 0-2 (0-5) /HPF Urine Microscopic WBC 0-2 (0-5) /HPF Ur Epithelial Cells Moderate A (None Seen) /HPF Urine Bacteria Moderate A (None Seen) /HPF Urine Culture Reflexed YES (NO) Influenza Type A Ag (NEGATIVE) Influenza Type B Ag (NEGATIVE) RSV (PCR) (NEGATIVE) SARS-CoV-2 (PCR) (NEGATIVE) Group A Strep Antibody (NEGATIVE) 04/01/25 04/01/25 04/01/25 Range/Units 14:35 14:35 14:35 WBC 10.4 H (3.98-10.04) x10^3/uL RBC 4.79 (3.93-5.22) x10^6/uL Hgb 14.2 (11.2-15.7) g/dL Hct 44.5 (34.1-44.9) % MCV 92.9 (79.4-94.8) fL MCH 29.6 (25.6-32.2) pg MCHC 31.9 L (32.2-35.5) g/dL RDW 13.2 (11.7-14.4) % Plt Count 248 (182-369) x10^3/uL MPV 10.3 (9.4-12.3) fL Gran % 70.3 (34.0-71.1) % Immature Gran % (Auto) 0.5 H (0.001-0.429) % Nucleat RBC Rel Count 0.0 (0.00-0.2) % Eos # (Auto) 0.11 (0.04-0.36) x10^3/uL Immature Gran # (Auto) 0.05 H (0.001-0.031) x10^3u/L Absolute Lymphs (auto) 2.40 (1.18-3.74) x10^3/uL Absolute Monos (auto) 0.46 (0.24-0.86) x10^3/uL Absolute Nucleated RBC 0.00 (0.00-0.012) x10^3u/L Lymphocytes % 23.1 (19.3-51.7) % Monocytes % 4.4 L (4.7-12.5) % Eosinophils % 1.1 (0.7-5.8) % Basophils % 0.6 (0.1-1.2) % Absolute Granulocytes 7.32 H (1.56-6.13) x10^3/uL Basophils # 0.06 (0.01-0.08) x10^3/uL D-Dimer (0.0-0.50) mg/L Sodium 141 (135-145) mmol/L Potassium 3.6 (3.5-5.1) mmol/L Chloride 108 H (98-107) mmol/L Carbon Dioxide 24 (22-30) mmol/L Anion Gap 12.8 (5-15) MEQ/L BUN 10 (7-17) mg/dL Creatinine 1.06 H (0.52-1.04) mg/dL Estimated GFR 60.5 ML/MIN Glucose 101 (74-106) mg/dL Lactic Acid (0.4-2.0) Calcium 9.3 (8.4-10.2) mg/dL Total Bilirubin 0.40 (0.2-1.3) mg/dL AST 31 (14-36) U/L ALT 24 (0-35) U/L Alkaline Phosphatase 141 H (38-126) U/L Troponin I < 0.012 (0.000-0.033) ng/mL NT-Pro-B Natriuret Pep 76.2 (<300) pg/mL Serum Total Protein 7.4 (6.3-8.2) g/dL Albumin 4.4 (3.5-5.0) g/dL Lipase 82 (23-300) U/L Free T4 1.05 (0.78-2.19) ng/dL TSH 3rd Generation (0.470-4.680) mIU/L Urine Color (Yellow) Urine Appearance (Clear) Urine pH (4.6-8.0) Ur Specific [place] (1.005-1.030) Urine Protein (Negative) Urine Glucose (UA) (Negative) mg/dL Urine Ketones (Negative) Urine Blood (Negative) Urine Nitrite (Negative) Urine Bilirubin (Negative) Urine Urobilinogen (0.2) mg/dL Ur Leukocyte Esterase (Negative) U Hyaline Cast (Auto) (0-2) /LPF Urine Microscopic RBC (0-5) /HPF Urine Microscopic WBC (0-5) /HPF Ur Epithelial Cells (None Seen) /HPF Urine Bacteria (None Seen) /HPF Urine Culture Reflexed (NO) Influenza Type A Ag (NEGATIVE) Influenza Type B Ag (NEGATIVE) RSV (PCR) (NEGATIVE) SARS-CoV-2 (PCR) (NEGATIVE) Group A Strep Antibody (NEGATIVE) - Progress Progress: improved, re-examined Air Movement: good Progress Note: 04/01/25 16:57 pt is still feeling weak and does not feel able to eat - CT neg for PE. Will consult with hospitalist to discuss possible obs and advancing diet 04/01/25 17:06 Dr. Combs agrees to[place pt in for overnight obs and advance diet and pt and family wish this as well. . 04/01/25 17:06 04/01/25 17:12 I advised the pt of her left renal cyst and right renal stone and differential breast density to f/u with her - she states she had mammo last year and I advised to check back with her on this to see if a repeat is advised soon. Blood Culture(s) Obtained: Yes Antibiotics given: Yes Discussed with DrJohn: Other (Dr. Combs hospitalist ) Will see patient in: hospital (observation) Counseled pt/family regarding: lab results, diagnosis, need for follow-up, rad results Medical Desision Making - Independent Historian Additional History obtained from: Family - Discussion of managment Care discussed with:: hospitalist Reviewed:: Test results, Need for additional workup Agreed on:: Treatment plan, need for follow-up, decision to admit, place in obs Will see patient: in hospital - Diagnostic Testing Diagnostic test were ordered, analyzed, and reviewed by me: Yes Radiological Interpretation: Teleradiologist Report - Risk of complications The pt has a mod risk of morbidity or mortality based on: Need for prescription drug management The pt has a high risk of morbidity or mortality based on: Decision regarding hospitilization or escalation of hosp level of care - Departure Departure Disposition: Observation Clinical Impression: weakness near syncope and SObreath, new LPFB on EKG, UTI (urinary tract infection), Left incidental renal cyst, right nonobs renal stone, Breast general density for f/u Condition: Good Critical Care Time: No Referrals: DILAN JONES MD [Primary Care Provider, [facility]] - Follow up/PCP as directed
[2025-04-01] MEDS ORDERED: ROCEPHIN 1 GM / 100 ML NaCl 1 GM/100 ML IVPB IV ONE (14:38)
[2025-04-01] MEDS ORDERED: Zofran 4 MG/2 ML VIAL ONE (14:45)
[2025-04-01] MEDS: Zofran 4 MG/2 ML VIAL IV ONE (14:45)
[2025-04-01 14:54] LABS: BASOPHIL % 0.6 % (0.1-1.2); Basophil (Absolute #) 0.06 x10^3/uL (0.01-0.08); Eosinophil (Absolute #) 0.11 x10^3/uL (0.04-0.36); Hematocrit 44.5 % (34.1-44.9); Hemoglobin 14.2 g/dL (11.2-15.7); IMMATURE GRAN # 0.05 x10^3u/L (0.001-0.031); IMMATURE GRAN % 0.5 % (0.001-0.429); Lymphocyte (Absolute #) 2.40 x10^3/uL (1.18-3.74); Mean Corpuscular Hemoglobin 29.6 pg (25.6-32.2); Mean Corpuscular Hgb Concent. 31.9 g/dL (32.2-35.5); Monocyte (Absolute #) 0.46 x10^3/uL (0.24-0.86); NUCLEATED RBC # 0.00 x10^3u/L (0.00-0.012); NUCLEATED RBC % 0.0 % (0.00-0.2); Platelet Count 248 x10^3/uL (182-369); Red Blood Count 4.79 x10^6/uL (3.93-5.22); White Blood Count 10.4 x10^3/uL (3.98-10.04)
[2025-04-01 15:00] LABS: Glucose, Urine Negative (Negative); Protein,Urine Dip Negative (Negative); RBC 0-2 /HPF (0-5); WBC 0-2 /HPF (0-5)
[2025-04-01] MEDS: ROCEPHIN 1 GM / 100 ML NaCl 1 GM/100 ML IVPB IV ONE (15:00)
[2025-04-01 15:10] LABS: Calcium 9.3 mg/dL (8.4-10.2); Carbon Dioxide 24 mmol/L (22-30); Creatinine 1 1.06 mg/dL (0.52-1.04); EST GLOMERULAR FILTRATION RATE 60.5 ML/MIN; Glucose 101 mg/dL (74-106); NT PRO BNPII 76.2 pg/mL (<300); Potassium 3.6 mmol/L (3.5-5.1); SGOT/AST 31 U/L (14-36); SGPT/ALT 24 U/L (0-35); TROPONIN < 0.012 ng/mL (0.000-0.033); Total Protein 7.4 g/dL (6.3-8.2)
[2025-04-01 15:42] LABS: INFLUENZA A NEGATIVE (NEGATIVE); INFLUENZA B NEGATIVE (NEGATIVE); RESPIRATORY SYNCTIAL VIRUS NEGATIVE (NEGATIVE); SARS-CoV-2 Xpert Express NEGATIVE (NEGATIVE)
[2025-04-01] MEDS ORDERED: DUONEB 0.5-3 MG/3 ml Neb IH ONE (15:52)
[2025-04-01] MEDS ORDERED: Sterile H2O 10 ml IJ ONE (15:58)
[2025-04-01] MEDS: solu-MEDROL 125 MG, Sterile H2O 10 ml 2 ML IV ONE (16:03)
[2025-04-01] MEDS: DUONEB 0.5-3 MG/3 ml Neb IH ONE (16:09)
--- NOTE | 2025-04-01 16:29 | XRAY ---
CLINICAL HISTORY: Short of breath COMPARISON: 03/17/2022 CT, 05/13/2020 CT. TECHNIQUE: Contiguous 3.[address] images of the chest were acquired with administration of intravenous contrast. Coronal and sagittal reconstructions were obtained. One of the following dose reduction techniques was utilized for this exam: automated exposure control, adjustment of the mA and/or kV according to patient size, and use of iterative reconstruction. FINDINGS: Lungs: The lungs are clear with no evidence of consolidation, collapse, or focal lesions. There are no ground-glass opacities or interstitial changes. There is no pleural effusion or pleural thickening. A previously appreciated bilateral atelectasis, mainly in the posterior lower lobes, is no longer seen. Mediastinum: There is no mediastinal mass or abnormal lymphadenopathy. There is a normal appearance of the thymus. Hilar Structures: The hilar structures are normal in size and configuration, with no enlargement. Heart and Great Vessels: The heart is normal in size and configuration. There is no pericardial effusion. There is normal caliber, course, and contrast enhancement of the thoracic aorta and the pulmonary trunk and its main, lobar, and segmental branches. There is no significant atherosclerosis or aneurysm. Pulmonary Arteries: There is no evidence of pulmonary embolism. The pulmonary arteries are normal in size and course. Esophagus: The esophagus has normal course and caliber. There are no masses or dilatation. Bones: There is right-sided convexity thoracic scoliosis. There are no fractures or lytic/sclerotic lesions. There is normal bone density and remaining alignment. There is no evidence of rib fractures. Chest Wall: There is asymmetric breast tissue density (denser in the left one). No marked interval changes are noted on a CT basis. Nevertheless, breast imaging correlation is recommended. There are no other masses or soft tissue abnormalities. Upper Abdomen: A hypodense lesion is noted in the left kidney and measures 22x24 mm. A small right renal non-obstructive stone is present. Cholecystectomy surgical clips are identified. Thyroid: The thyroid is normal in size and morphology. There are no nodules or masses. IMPRESSION: 1. A previously appreciated atelectasis bilaterally, mainly in the posterior lower lobes, is no longer seen. 2. No otherwise marked interval changes. No evidence of pulmonary or cardiac acute abnormality. 3. Left renal cyst and right renal small non-obstructive stone. 4. Right-sided convexity thoracic scoliosis. Electronically Signed by: Maverick Shah MD. (04/01/2025 16:29:24 EDT)
[2025-04-01] MEDS ORDERED: DUONEB 0.5-3 MG/3 ml Neb IH PRN (17:43)
--- NOTE | 2025-04-01 18:19 | PCM.HP ---
<SENTHIL REILLY - Last Filed: 04/01/25 18:13> History of Present Illness - Chief Complaint Chief Complaint: weakness, sob Date: 04/01/25 History of Present Illness: is a 60 year old female with a medical history significant for migraines , hypothyroidism, arthritis, degenerative disc disease, anxiety, depression, and diverticulosis, who presented to the emergency department on April 01, 2025, with complaints of persistent cough and shortness of breath following an influenza infection two weeks prior. She also reported subjective fever/chills, nausea, sore throat, and progressive weakness. She was referred from urgent care after noting fatigue and chest discomfort that worsened with coughing. She denies prior cardiac history and underwent a negative cardiac evaluation with a negative calcium score approximately four years ago. However, she has a known bifascicular block and right bundle branch block identified in 2021, and now demonstrates a new left posterior fascicular block on EKG. She reports intermittent palpitations, dizziness, and recent diarrhea. She completed a course of oseltamivir prior to presentation. Upon arrival, she was tachycardic with a heart rate of 112 bpm but otherwise hemodynamically stable. Electrocardiogram demonstrated sinus tachycardia with left axis deviation, right bundle branch block, nonspecific ST changes, and left posterior fascicular block. Laboratory evaluation revealed mild leukocytosis with WBC 10.4, creatinine mildly elevated at 1.06 (baseline 0.9), and alkaline phosphatase slightly elevated at 141. Urinalysis showed moderate bacteria, moderate epithelial cells, and hyaline casts, concerning for possible urinary tract infection. Troponin was within normal limits and will be trended. BNP was 76.2 , within normal range, and TSH was normal, suggesting stable thyroid funct ion. CT chest with pulmonary embolism protocol demonstrated no acute pulmonary or cardiac abnormality. Additional findings included a benign left renal cyst, a small non-obstructive right renal calculus, and right-sided convex thoracic scoliosis. Previously noted bibasilar atelectasis was resolved. In the emergency department, she received 2 liters of IV normal saline, 125 mg IV Solu-Medrol, a Duoneb treatment, IV ceftriaxone, and IV ondansetron. - Review of Systems Constitutional: Fever, Chills, Weakness Eyes: No Symptoms Ears, Nose, & Throat: Nose Congestion, Sinus Drainage, Throat Pain Respiratory: Cough, Short Of Breath Cardiac: No Symptoms Abdominal/Gastrointestinal: Diarrhea Genitourinary Symptoms: No Symptoms Musculoskeletal: No Symptoms Skin: No Symptoms Neurological: Dizziness Psychological: No Symptoms Endocrine: No Symptoms Hematologic/Lymphatic: No Symptoms Immunological/Allergic: No Symptoms Medications & Allergies Home Medications: Home Medication List Diclofenac Sodium 25 mg PO QAM 05/13/20 [History Confirmed 04/01/25] LORazepam [Lorazepam] 2 mg PO HS 05/13/20 [History Confirmed 04/01/25] PARoxetine HCL [Paxil] 20 mg PO HS 05/13/20 [History Confirmed 04/01/25] Quetiapine Fumarate 100 mg PO HS 05/13/20 [History Confirmed 04/01/25] Levothyroxine Sodium 75 Mcg [Synthroid 75 Mcg] 75 mcg PO DAILY 02/20/23 [History Confirmed 04/01/25] Tizanidine HCl 4 mg PO HS 02/20/23 [History Confirmed 04/01/25] Ubrogepant [Ubrelvy] 100 mg PO UD PRN 03/03/23 [History Confirmed 04/01/25] Dicyclomine HCl 20 mg [Bentyl 20 mg] 20 mg PO QAM 04/01/25 [History Confir med 04/01/25] Diphenhydramine HCl 25 mg [Benadryl 25 mg Capsule] 50 mg PO HS 04/01/25 [History Confirmed 04/01/25] Galcanezumab-Gnlm [Emgality Syringe] 120 mg SQ UD 04/01/25 [History Confirmed 1 ] Multivit-Minerals/Folic Acid [Women's Multivitamin Gummies] 2 tab PO DAILY 04/01/25 [History Confirmed 04/01/25] PARoxetine HCL [Paroxetine HCl] 10 mg PO QAM 04/01/25 [History Confirmed 04/01] Topiramate 50 mg PO HS 04/01/25 [History Confirmed 04/01/25] Prednisone 20 mg [Deltasone 20 mg] 20 mg PO BID 5 Days #10 tablet 04/02/25 [Rx] Allergies/Adverse Reactions: Allergies Allergy/AdvReac Type Severity Reaction Status Date / Time prochlorperazine AdvReac Intermediate restless Verified 04/01/25 14:31 [From Compazine] leg - Past Medical History Past Medical History: Yes Neurological History: Migraines ENT History: No Pertinent History Cardiac History: High Cholesterol Respiratory History: No Pertinent History Endocrine Medical History: Hypothyroidism Musculoskelatal History: Arthritis, Degenerative Disk Disease GI Medical History: Diverticulosis, Gallbladder Disease History: Other Pyscho-Social History: Anxiety, Depression Reproductive Disorders: No Pertinent History Comment: MITRAL VALVE - Past Surgical History Past Surgical History: Yes Neuro Surgical History: No Pertinent History Cardiac History: No Pertinent History Respiratory Surgery: No Pertinent History GI Surgical History: Cholecystectomy Genitourinary Surgical Hx: No Pertinent History Musculskeletal Surgical Hx: Orthopedic Surgery Female Surgical History: Lumpectomy, Hysterectomy, Tubal Ligation Other Surgical History: TONSILS, 2 NECK FUSIONS Significant Family History: heart disease, cancer - Social History Smoking Status: Never smoker Exposure to second hand smoke: No Alcohol: None Drug Use: none - Social Determinants of Health Will the patient participate in the screening: Yes Do you worry about a steady place to live?: No Do you have any problems with any of the following?: No known problems In the past 12 months,have you had to go without utilities?: No Have you or anyone in your house had to go without enough: No Transportation Issues: No Has anyone in your support network made you feel unsafe?: No - Physical Exam Vital Signs: Vital Signs - 24 hr Temp Pulse Resp BP BP Pulse Ox 04/01/25 17:35 90 18 97 04/01/25 17:31 98.2 F 86 18 130/71 99 04/01/25 17:14 98 04/01/25 17:00 90 22 126/74 98 04/01/25 16:57 90 19 133/99 100 04/01/25 16:30 93 H 20 120/81 87 L 04/01/25 16:12 88 18 98 04/01/25 16:00 73 17 123/80 100 04/01/25 15:30 82 18 120/84 98 04/01/25 15:10 88 22 113/84 98 04/01/25 14:30 108 H 24 119/85 96 04/01/25 14:18 98.2 F 112 H 20 98 General Appearance: no apparent distress Neurologic Exam: alert, oriented x 3, cooperative Eye Exam: PERRL/EOMI Ears, Nose, Throat Exam: normal ENT inspection Neck Exam: normal inspection Respiratory Exam: normal breath sounds, lungs clear Cardiovascular Exam: regular rate/rhythm, normal heart sounds Gastrointestinal/Abdomen Exam: soft, normal bowel sounds Pelvic Exam: not done Rectal Exam: deferred Back Exam: normal inspection Extremity Exam: normal inspection Skin Exam: normal color Results - Labs Lab/Micro Results: Lab Results-Last 24 Hours 04/01/25 04/01/25 04/01/25 Range/Units 14:35 14:35 14:35 WBC 10.4 H (3.98-10.04) x10^3/uL RBC 4.79 (3.93-5.22) x10^6/uL Hgb 14.2 (11.2-15.7) g/dL Hct 44.5 (34.1-44.9) % MCV 92.9 (79.4-94.8) fL MCH 29.6 (25.6-32.2) pg MCHC 31.9 L (32.2-35.5) g/dL RDW 13.2 (11.7-14.4) % Plt Count 248 (182-369) x10^3/uL MPV 10.3 (9.4-12.3) fL Gran % 70.3 (34.0-71.1) % Immature Gran % (Auto) 0.5 H (0.001-0.429) % Nucleat RBC Rel Count 0.0 (0.00-0.2) % Eos # (Auto) 0.11 (0.04-0.36) x10^3/uL Immature Gran # (Auto) 0.05 H (0.001-0.031) x10^3u/L Absolute Lymphs (auto) 2.40 (1.18-3.74) x10^3/uL Absolute Monos (auto) 0.46 (0.24-0.86) x10^3/uL Absolute Nucleated RBC 0.00 (0.00-0.012) x10^3u/L Lymphocytes % 23.1 (19.3-51.7) % Monocytes % 4.4 L (4.7-12.5) % Eosinophils % 1.1 (0.7-5.8) % Basophils % 0.6 (0.1-1.2) % Absolute Granulocytes 7.32 H (1.56-6.13) x10^3/uL Basophils # 0.06 (0.01-0.08) x10^3/uL D-Dimer (0.0-0.50) mg/L Sodium 141 (135-145) mmol/L Potassium 3.6 (3.5-5.1) mmol/L Chloride 108 H (98-107) mmol/L Carbon Dioxide 24 (22-30) mmol/L Anion Gap 12.8 (5-15) MEQ/L BUN 10 (7-17) mg/dL Creatinine 1.06 H (0.52-1.04) mg/dL Estimated GFR 60.5 ML/MIN Glucose 101 (74-106) mg/dL Lactic Acid (0.4-2.0) Calcium 9.3 (8.4-10.2) mg/dL Total Bilirubin 0.40 (0.2-1.3) mg/dL AST 31 (14-36) U/L ALT 24 (0-35) U/L Alkaline Phosphatase 141 H (38-126) U/L Troponin I < 0.012 (0.000-0.033) ng/mL NT-Pro-B Natriuret Pep 76.2 (<300) pg/mL Serum Total Protein 7.4 (6.3-8.2) g/dL Albumin 4.4 (3.5-5.0) g/dL Lipase 82 (23-300) U/L Free T4 1.05 (0.78-2.19) ng/dL TSH 3rd Generation (0.470-4.680) mIU/L Urine Color (Yellow) Urine Appearance (Clear) Urine pH (4.6-8.0) Ur Specific [place] (1.005-1.030) Urine Protein (Negative) Urine Glucose (UA) (Negative) mg/dL Urine Ketones (Negative) Urine Blood (Negative) Urine Nitrite (Negative) Urine Bilirubin (Negative) Urine Urobilinogen (0.2) mg/dL Ur Leukocyte Esterase (Negative) U Hyaline Cast (Auto) (0-2) /LPF Urine Microscopic RBC (0-5) /HPF Urine Microscopic WBC (0-5) /HPF Ur Epithelial Cells (None Seen) /HPF Urine Bacteria (None Seen) /HPF Urine Culture Reflexed (NO) Influenza Type A Ag (NEGATIVE) Influenza Type B Ag (NEGATIVE) RSV (PCR) (NEGATIVE) SARS-CoV-2 (PCR) (NEGATIVE) Group A Strep Antibody (NEGATIVE) 04/01/25 04/01/25 04/01/25 Range/Units 14:35 14:35 14:39 WBC (3.98-10.04) x10^3/uL RBC (3.93-5.22) x10^6/uL Hgb (11.2-15.7) g/dL Hct (34.1-44.9) % MCV (79.4-94.8) fL MCH (25.6-32.2) pg MCHC (32.2-35.5) g/dL RDW (11.7-14.4) % Plt Count (182-369) x10^3/uL MPV (9.4-12.3) fL Gran % (34.0-71.1) % Immature Gran % (Auto) (0.001-0.429) % Nucleat RBC Rel Count (0.00-0.2) % Eos # (Auto) (0.04-0.36) x10^3/uL Immature Gran # (Auto) (0.001-0.031) x10^3u/L Absolute Lymphs (auto) (1.18-3.74) x10^3/uL Absolute Monos (auto) (0.24-0.86) x10^3/uL Absolute Nucleated RBC (0.00-0.012) x10^3u/L Lymphocytes % (19.3-51.7) % Monocytes % (4.7-12.5) % Eosinophils % (0.7-5.8) % Basophils % (0.1-1.2) % Absolute Granulocytes (1.56-6.13) x10^3/uL Basophils # (0.01-0.08) x10^3/uL D-Dimer < 0.19 (0.0-0.50) mg/L Sodium (135-145) mmol/L Potassium (3.5-5.1) mmol/L Chloride (98-107) mmol/L Carbon Dioxide (22-30) mmol/L Anion Gap (5-15) MEQ/L BUN (7-17) mg/dL Creatinine (0.52-1.04) mg/dL Estimated GFR ML/MIN Glucose (74-106) mg/dL Lactic Acid (0.4-2.0) Calcium (8.4-10.2) mg/dL Total Bilirubin (0.2-1.3) mg/dL AST (14-36) U/L ALT (0-35) U/L Alkaline Phosphatase (38-126) U/L Troponin I (0.000-0.033) ng/mL NT-Pro-B Natriuret Pep (<300) pg/mL Serum Total Protein (6.3-8.2) g/dL Albumin (3.5-5.0) g/dL Lipase (23-300) U/L Free T4 (0.78-2.19) ng/dL TSH 3rd Generation 0.663 (0.470-4.680) mIU/L Urine Color Yellow (Yellow) Urine Appearance Cloudy A (Clear) Urine pH 5.5 (4.6-8.0) Ur Specific [place] 1.020 (1.005-1.030) Urine Protein Negative (Negative) Urine Glucose (UA) Negative (Negative) mg/dL Urine Ketones Trace A (Negative) Urine Blood Negative (Negative) Urine Nitrite Negative (Negative) Urine Bilirubin Negative (Negative) Urine Urobilinogen 1.0 A (0.2) mg/dL Ur Leukocyte Esterase Negative (Negative) U Hyaline Cast (Auto) 3-5 A (0-2) /LPF Urine Microscopic RBC 0-2 (0-5) /HPF Urine Microscopic WBC 0-2 (0-5) /HPF Ur Epithelial Cells Moderate A (None Seen) /HPF Urine Bacteria Moderate A (None Seen) /HPF Urine Culture Reflexed YES (NO) Influenza Type A Ag (NEGATIVE) Influenza Type B Ag (NEGATIVE) RSV (PCR) (NEGATIVE) SARS-CoV-2 (PCR) (NEGATIVE) Group A Strep Antibody (NEGATIVE) 04/01/25 04/01/25 04/01/25 Range/Units 14:50 14:59 14:59 WBC (3.98-10.04) x10^3/uL RBC (3.93-5.22) x10^6/uL Hgb (11.2-15.7) g/dL Hct (34.1-44.9) % MCV (79.4-94.8) fL MCH (25.6-32.2) pg MCHC (32.2-35.5) g/dL RDW (11.7-14.4) % Plt Count (182-369) x10^3/uL MPV (9.4-12.3) fL Gran % (34.0-71.1) % Immature Gran % (Auto) (0.001-0.429) % Nucleat RBC Rel Count (0.00-0.2) % Eos # (Auto) (0.04-0.36) x10^3/uL Immature Gran # (Auto) (0.001-0.031) x10^3u/L Absolute Lymphs (auto) (1.18-3.74) x10^3/uL Absolute Monos (auto) (0.24-0.86) x10^3/uL Absolute Nucleated RBC (0.00-0.012) x10^3u/L Lymphocytes % (19.3-51.7) % Monocytes % (4.7-12.5) % Eosinophils % (0.7-5.8) % Basophils % (0.1-1.2) % Absolute Granulocytes (1.56-6.13) x10^3/uL Basophils # (0.01-0.08) x10^3/uL D-Dimer (0.0-0.50) mg/L Sodium (135-145) mmol/L Potassium (3.5-5.1) mmol/L Chloride (98-107) mmol/L Carbon Dioxide (22-30) mmol/L Anion Gap (5-15) MEQ/L BUN (7-17) mg/dL Creatinine (0.52-1.04) mg/dL Estimated GFR ML/MIN Glucose (74-106) mg/dL Lactic Acid 1.1 (0.4-2.0) Calcium (8.4-10.2) mg/dL Total Bilirubin (0.2-1.3) mg/dL AST (14-36) U/L ALT (0-35) U/L Alkaline Phosphatase (38-126) U/L Troponin I (0.000-0.033) ng/mL NT-Pro-B Natriuret Pep (<300) pg/mL Serum Total Protein (6.3-8.2) g/dL Albumin (3.5-5.0) g/dL Lipase (23-300) U/L Free T4 (0.78-2.19) ng/dL TSH 3rd Generation (0.470-4.680) mIU/L Urine Color (Yellow) Urine Appearance (Clear) Urine pH (4.6-8.0) Ur Specific [place] (1.005-1.030) Urine Protein (Negative) Urine Glucose (UA) (Negative) mg/dL Urine Ketones (Negative) Urine Blood (Negative) Urine Nitrite (Negative) Urine Bilirubin (Negative) Urine Urobilinogen (0.2) mg/dL Ur Leukocyte Esterase (Negative) U Hyaline Cast (Auto) (0-2) /LPF Urine Microscopic RBC (0-5) /HPF Urine Microscopic WBC (0-5) /HPF Ur Epithelial Cells (None Seen) /HPF Urine Bacteria (None Seen) /HPF Urine Culture Reflexed (NO) Influenza Type A Ag NEGATIVE (NEGATIVE) Influenza Type B Ag NEGATIVE (NEGATIVE) RSV (PCR) NEGATIVE (NEGATIVE) SARS-CoV-2 (PCR) NEGATIVE (NEGATIVE) Group A Strep Antibody NOT DETECTED (NEGATIVE) - Radiology Impressions Radiology Exams & Impressions: Radiology Procedures Category Date Time Status CHEST WITH CONTRAST [CT] Stat Exams 04/01/25 14:38 Completed - Other Procedures and Tests Respiratory Therapy 04/01/25 16:12 Respiratory Therapy Assessment DAILY Assessment/Plan (1) Bronchitis Status: Acute Assessment & Plan: -Patient presents with persistent cough and dyspnea two weeks after an influenza infection. CT chest with PE protocol showed no pulmonary embolism, consolidation, or acute cardiopulmonary abnormality. Previously noted bibasilar atelectasis had resolved. The -combination of post-viral inflammation and mild bronchospasm is most consistent with post-viral airway reactivity. -Continue bronchodilator therapy with scheduled and PRN Duoneb treatments for symptomatic relief. -Continue prednisone 20mg BID (after receiving 125 mg IV Solu-Medrol in the ED) to reduce airway inflammation. -Encourage pulmonary hygiene, incentive spirometry, and hydration. -Monitor for secondary bacterial infectionno consolidation noted on imaging, so antibiotics for bronchitis not indicated beyond empiric Rocephin given initially. -Reassess respiratory status daily; if worsening, repeat chest imaging or consider sputum Code(s): J40 - BRONCHITIS, NOT SPECIFIED ACUTE OR CHRONIC (2) UTI (urinary tract infection) Status: Acute Assessment & Plan: UA findings: moderate bacteria, moderate epithelial cells, hyaline casts. These findings suggest possible infection but may also reflect contamination; no nitrites or leukocyte esterase reported. -Renal function: creatinine 1.06 mg/dL (baseline 0.9). -Continue IV ceftriaxone initiated in the ED pending urine culture results. -IVF -WBC 10.4 -Reassess clinical picture when culture results available; de-escalate to targeted oral antibiotics if infection confirmed. Code(s): N39.0 - URINARY TRACT INFECTION, SITE NOT SPECIFIED (3) Chest discomfort Status: Acute Assessment & Plan: Pain associated with coughing, no exertional component. -CT chest: no acute cardiac or pulmonary abnormality. -Cardiac biomarkers: Troponin within normal limits (initial) trending planned; BNP 76.2 pg/mL (normal). -Continue trending troponin to ensure no delayed elevation. -Provide symptomatic relief for cough and chest wall discomfort with supportive measures (e.g., guaifenesin, acetaminophen). -Monitor for new or progressive chest pain; if occurs, repeat EKG and cardiac enzymes. Code(s): R07.89 - OTHER CHEST PAIN (4) Hypothyroid Status: Acute Assessment & Plan: -TSH: within normal limits. -Continue home levothyroxine at established dose. -No dose adjustment indicated at this time. Code(s): E03.9 - HYPOTHYROIDISM, UNSPECIFIED (5) Anxiety and depression Status: Acute Assessment & Plan: -Continue home psychotropic regimen. -Encourage stress-reduction strategies and ensure adequate rest. Code(s): F41.9 - ANXIETY DISORDER, UNSPECIFIED; F32.A - DEPRESSION, UNSPECIFIED (6) Prerenal azotemia Status: Acute Assessment & Plan: Likely multifactorialdiarrhea, decreased intake, and post-infectious fatigue. -Creatinine mildly elevated (1.06 mg/dL from baseline 0.9). -Continue IV normal saline as needed for volume repletion (received 2 L bolus in ED). -Encourage oral hydration as tolerated. -Avoid nephrotoxic agents (NSAIDs, contrast). -Monitor renal/lytes Code(s): R79.89 - OTHER SPECIFIED ABNORMAL FINDINGS OF BLOOD CHEMISTRY (7) Left posterior fascicular block (LPFB) Status: Acute Assessment & Plan: -Chronic right bundle branch block now accompanied by left posterior fascicular block on EKG; no acute ischemia. -Continue telemetry monitoring during admission. -Recommend outpatient cardiology follow-up for ongoing rhythm evaluation. -If symptomatic bradycardia, syncope, or AV conduction changes develop, consider pacing evaluation. Code(s): I44.5 - LEFT POSTERIOR FASCICULAR BLOCK (8) Leukocytosis Status: Acute Assessment & Plan: -WBC 10.4, likely related to recent infection or steroid exposure. -Continue monitoring CBC daily to assess trend. -Evaluate for infectious source if counts rise or fever persists. VTE: SCD PPI: protonix Dispo: 1-3 days Code status: Full code Plan of care time spent > 40mins Code(s): D72.829 - ELEVATED WHITE BLOOD CELL COUNT, UNSPECIFIED Telemedicine Encounter - Telemedicine Encounter Telemedicine Encounter: "The entirety of this encounter was performed via Telemedicine" This visit was performed using real-time audio and video connection between my location and thepatients locationwith the assistance of a surrogateat the patients location. Written or verbal consent was obtained from the patient/guardian to perform this visit usingRF nanocine technology. Any patient questions regarding the telemedicine interaction were answered. <TIFFANIE BYRD - Last Filed: 04/02/25 19:46> History of Present Illness - Chief Complaint History of Present Illness: is a 60 year old female. - Physical Exam Vital Signs: Vital Signs - 24 hr Temp Pulse Resp BP Pulse Ox 04/02/25 12:17 73 95/60 04/02/25 10:35 67 93/55 04/02/25 08:00 97.1 F 83 20 83/45 95 04/02/25 04:00 98.3 F 77 18 102/60 96 04/01/25 23:28 97.7 F 80 18 122/67 98 Results - Labs Lab/Micro Results: Lab Results-Last 24 Hours 04/01/25 04/02/25 04/02/25 Range/Units 21:25 05:25 05:25 WBC 10.1 H (3.98-10.04) x10^3/uL RBC 4.06 (3.93-5.22) x10^6/uL Hgb 11.9 (11.2-15.7) g/dL Hct 37.1 (34.1-44.9) % MCV 91.4 (79.4-94.8) fL MCH 29.3 (25.6-32.2) pg MCHC 32.1 L (32.2-35.5) g/dL RDW 13.2 (11.7-14.4) % Plt Count 212 (182-369) x10^3/uL MPV 10.4 (9.4-12.3) fL Gran % 84.8 H (34.0-71.1) % Immature Gran % (Auto) 0.8 H (0.001-0.429) % Nucleat RBC Rel Count 0.0 (0.00-0.2) % Eos # (Auto) 0 L (0.04-0.36) x10^3/uL Immature Gran # (Auto) 0.08 H (0.001-0.031) x10^3u/L Absolute Lymphs (auto) 1.34 (1.18-3.74) x10^3/uL Absolute Monos (auto) 0.09 L (0.24-0.86) x10^3/uL Absolute Nucleated RBC 0.00 (0.00-0.012) x10^3u/L Lymphocytes % 13.3 L (19.3-51.7) % Monocytes % 0.9 L (4.7-12.5) % Eosinophils % 0.0 L (0.7-5.8) % Basophils % 0.2 (0.1-1.2) % Absolute Granulocytes 8.53 H (1.56-6.13) x10^3/uL Basophils # 0.02 (0.01-0.08) x10^3/uL Sodium 139 (135-145) mmol/L Potassium 3.7 (3.5-5.1) mmol/L Chloride 115 H (98-107) mmol/L Carbon Dioxide 18 L (22-30) mmol/L Anion Gap 9.8 (5-15) MEQ/L BUN 7 (7-17) mg/dL Creatinine 0.72 (0.52-1.04) mg/dL Estimated GFR 96.3 ML/MIN Glucose 162 H (74-106) mg/dL Calcium 8.1 L (8.4-10.2) mg/dL Total Bilirubin < 0.10 L (0.2-1.3) mg/dL AST 29 (14-36) U/L ALT 24 (0-35) U/L Alkaline Phosphatase 106 (38-126) U/L Troponin I < 0.012 (0.000-0.033) ng/mL Serum Total Protein 5.9 L (6.3-8.2) g/dL Albumin 3.4 L (3.5-5.0) g/dL Microbiology 04/01/25 14:39 Urine Culture - Preliminary Urine, Void NO GROWTH TO DATE - Radiology Impressions Radiology Exams & Impressions: Radiology Procedures Category Date Time Status CHEST WITH CONTRAST [CT] Stat Exams 04/01/25 14:38 Completed Telemedicine Encounter - Telemedicine Encounter Telemedicine Encounter: "The entirety of this encounter was performed via Telemedicine" This visit was performed using real-time audio and video connection between my location and thepatients locationwith the assistance of a surrogateat the patients location. Written or verbal consent was obtained from the patient/guardian to perform this visit usingEndorphin technology. Any patient questions regarding the telemedicine interaction were answered. JOSE Encounter - JOSE Encounter Attestation JOSE Encounter Attestation: "LIZABETH Churchill on 04/01/2025 andhavediscussed pertinent aspects of their care with Senthil Delgado agree with the history, physical exam (any modifications based on my personal exam will be noted below), assessment, and plan as outlined in original note. Please see immediately below for my summary of findings and additional assessment and plan along with any meaningful corrections/explanations to the Subjec tive/Objective portions of the JOSE note will be noted." My portion of the encounter took place via telemedicine. -Patient has been feeling poorly with persistent cough and associated chest pain since her flu 2 weeks ago. Noted to have a new left posterior fasicular block but no typical chest pain and trops have been negative. Plan is to treat acute bronchitis with steroids, nebs and outpatient cardiology follow up.
[2025-04-01] MEDS ORDERED: Zofran 4 MG/2 ML VIAL IV PRN (18:27)
[2025-04-01] MEDS ORDERED: NON-FORMULARY ITEM (Ubrogepant [Ubrelvy] 100 MG Tablet) PO PRN (18:29)
[2025-04-01] MEDS: TOPIRAMATE PO SCH (23:00)
[2025-04-01] MEDS: Zanaflex 4 MG PO SCH (23:00)
[2025-04-01] MEDS: Paxil 20 MG PO SCH (23:00)
[2025-04-01] MEDS: DELTASONE 20 MG PO SCH (23:00)
[2025-04-01] MEDS: Ativan 1 MG PO SCH (23:00)
[2025-04-01] MEDS: Seroquel 100 MG PO SCH (23:00)
[2025-04-02] MEDS: TYLENOL 325 MG PO PRN (00:20)
[2025-04-02 05:29] LABS: BASOPHIL % 0.2 % (0.1-1.2); Basophil (Absolute #) 0.02 x10^3/uL (0.01-0.08); Eosinophil (Absolute #) 0 x10^3/uL (0.04-0.36); Hematocrit 37.1 % (34.1-44.9); Hemoglobin 11.9 g/dL (11.2-15.7); IMMATURE GRAN # 0.08 x10^3u/L (0.001-0.031); IMMATURE GRAN % 0.8 % (0.001-0.429); Lymphocyte (Absolute #) 1.34 x10^3/uL (1.18-3.74); Mean Corpuscular Hemoglobin 29.3 pg (25.6-32.2); Mean Corpuscular Hgb Concent. 32.1 g/dL (32.2-35.5); Monocyte (Absolute #) 0.09 x10^3/uL (0.24-0.86); NUCLEATED RBC # 0.00 x10^3u/L (0.00-0.012); NUCLEATED RBC % 0.0 % (0.00-0.2); Platelet Count 212 x10^3/uL (182-369); Red Blood Count 4.06 x10^6/uL (3.93-5.22); White Blood Count 10.1 x10^3/uL (3.98-10.04)
[2025-04-02 05:53] LABS: Calcium 8.1 mg/dL (8.4-10.2); Carbon Dioxide 18 mmol/L (22-30); Creatinine 1 0.72 mg/dL (0.52-1.04); EST GLOMERULAR FILTRATION RATE 96.3 ML/MIN; Glucose 162 mg/dL (74-106); Potassium 3.7 mmol/L (3.5-5.1); SGOT/AST 29 U/L (14-36); SGPT/ALT 24 U/L (0-35); Total Protein 5.9 g/dL (6.3-8.2)
[2025-04-02 08:57] VITALS: RESP 20; TEMP 97.1; O2SAT 95
[2025-04-02] MEDS ORDERED: MEDICATION INTERVENTION MC SCH ×2 (09:30)
--- NOTE | 2025-04-02 09:52 | PCM.DS ---
Discharge Summary Date of Admission: 04/01/25 17:29 Date of Discharge: 04/02/25 Admitting Physician: TIFFANIE BYRD MD Primary Care Provider: DILAN JONES Allergies Allergies prochlorperazine [From Compazine] Adverse Reaction (Intermediate, Verified 04/01/25 14:31) [facility] Summary - Hospital Course Hospital Course: Ms. See was admitted on April 01, 2025, with complaints of persistent cough, shortness of breath, fatigue, and chest discomfort following an influenza infection two weeks earlier. She also noted intermittent palpitations, dizziness, and recent diarrhea. Her past medical history includes migraines, hypothyroidism, arthritis, degenerative disc disease, anxiety, depression, and diverticulosis. On arrival, she was tachycardic (HR 112 bpm) but otherwise hemodynamically stable. EKG revealed sinus tachycardia with right bundle branch block and a new left posterior fascicular block but no ischemic changes. Laboratory evaluation showed mild leukocytosis (WBC 10.4 K/L), creatinine mildly elevated at 1.06 mg/dL now at baseline , and alkaline phosphatase slightly elevated at 141 U/L. Urinalysis demonstrated moderate bacteria and hyaline casts, but urine culture later showed no growth, ruling out active infection. Troponin and BNP were within normal limits. TSH was normal, indicating stable thyroid function. CT chest (PE protocol) showed no pulmonary embolism, consolidation, or acute cardiopulmonary process; prior bibasilar atelectasis had resolved. Incidental findings included a benign left renal cyst, a small non-obstructive right renal calculus, and mild thoracic scoliosis. In the ED, she received 2 L IV normal saline, 125 mg IV Solu-Medrol, Duoneb, IV ceftriaxone, and ondansetron, with improvement in symptoms. Discharge Note New Diagnosis: Bronchitis New Medications: Prednisone Follow Up: PCP/Cardiology I spent 35 minutes [id number] with the patient on the day of discharge performing discharge exam, discussing hospital stay and discharge instructions with patient and caregivers, preparation of discharge records, prescriptions & referral forms and addressing any questions/concerns the patient had as documented above. - Vitals & Intake/Output Vital Signs: Vital Signs Temperature 97.1 F 04/02/25 08:00 Pulse Rate 83 04/02/25 08:00 Respiratory Rate 20 04/02/25 08:00 Blood Pressure 83/45 04/02/25 08:00 O2 Sat by Pulse Oximetry 95 04/02/25 08:00 Intake & Output: Intake & Output 03/30/25 03/31/25 04/01/25 04/02/25 11:59 11:59 11:59 11:59 Intake Total 2818 Output Total 1200 Balance 1618 Weight 69.4 kg - Lab Result Diagrams: 04/02/25 05:25 04/02/25 05:25 Lab Results-Last 24 Hrs: Lab Results-Last 24 Hours 04/01/25 04/01/25 04/01/25 Range/Units 14:35 14:35 14:35 WBC 10.4 H (3.98-10.04) x10^3/uL RBC 4.79 (3.93-5.22) x10^6/uL Hgb 14.2 (11.2-15.7) g/dL Hct 44.5 (34.1-44.9) % MCV 92.9 (79.4-94.8) fL MCH 29.6 (25.6-32.2) pg MCHC 31.9 L (32.2-35.5) g/dL RDW 13.2 (11.7-14.4) % Plt Count 248 (182-369) x10^3/uL MPV 10.3 (9.4-12.3) fL Gran % 70.3 (34.0-71.1) % Immature Gran % (Auto) 0.5 H (0.001-0.429) % Nucleat RBC Rel Count 0.0 (0.00-0.2) % Eos # (Auto) 0.11 (0.04-0.36) x10^3/uL Immature Gran # (Auto) 0.05 H (0.001-0.031) x10^3u/L Absolute Lymphs (auto) 2.40 (1.18-3.74) x10^3/uL Absolute Monos (auto) 0.46 (0.24-0.86) x10^3/uL Absolute Nucleated RBC 0.00 (0.00-0.012) x10^3u/L Lymphocytes % 23.1 (19.3-51.7) % Monocytes % 4.4 L (4.7-12.5) % Eosinophils % 1.1 (0.7-5.8) % Basophils % 0.6 (0.1-1.2) % Absolute Granulocytes 7.32 H (1.56-6.13) x10^3/uL Basophils # 0.06 (0.01-0.08) x10^3/uL D-Dimer (0.0-0.50) mg/L Sodium 141 (135-145) mmol/L Potassium 3.6 (3.5-5.1) mmol/L Chloride 108 H (98-107) mmol/L Carbon Dioxide 24 (22-30) mmol/L Anion Gap 12.8 (5-15) MEQ/L BUN 10 (7-17) mg/dL Creatinine 1.06 H (0.52-1.04) mg/dL Estimated GFR 60.5 ML/MIN Glucose 101 (74-106) mg/dL Lactic Acid (0.4-2.0) Calcium 9.3 (8.4-10.2) mg/dL Total Bilirubin 0.40 (0.2-1.3) mg/dL AST 31 (14-36) U/L ALT 24 (0-35) U/L Alkaline Phosphatase 141 H (38-126) U/L Troponin I < 0.012 (0.000-0.033) ng/mL NT-Pro-B Natriuret Pep 76.2 (<300) pg/mL Serum Total Protein 7.4 (6.3-8.2) g/dL Albumin 4.4 (3.5-5.0) g/dL Lipase 82 (23-300) U/L Free T4 1.05 (0.78-2.19) ng/dL TSH 3rd Generation (0.470-4.680) mIU/L Urine Color (Yellow) Urine Appearance (Clear) Urine pH (4.6-8.0) Ur Specific Clarks (1.005-1.030) Urine Protein (Negative) Urine Glucose (UA) (Negative) mg/dL Urine Ketones (Negative) Urine Blood (Negative) Urine Nitrite (Negative) Urine Bilirubin (Negative) Urine Urobilinogen (0.2) mg/dL Ur Leukocyte Esterase (Negative) U Hyaline Cast (Auto) (0-2) /LPF Urine Microscopic RBC (0-5) /HPF Urine Microscopic WBC (0-5) /HPF Ur Epithelial Cells (None Seen) /HPF Urine Bacteria (None Seen) /HPF Urine Culture Reflexed (NO) Influenza Type A Ag (NEGATIVE) Influenza Type B Ag (NEGATIVE) RSV (PCR) (NEGATIVE) SARS-CoV-2 (PCR) (NEGATIVE) Group A Strep Antibody (NEGATIVE) 04/01/25 04/01/25 04/01/25 Range/Units 14:35 14:35 14:39 WBC (3.98-10.04) x10^3/uL RBC (3.93-5.22) x10^6/uL Hgb (11.2-15.7) g/dL Hct (34.1-44.9) % MCV (79.4-94.8) fL MCH (25.6-32.2) pg MCHC (32.2-35.5) g/dL RDW (11.7-14.4) % Plt Count (182-369) x10^3/uL MPV (9.4-12.3) fL Gran % (34.0-71.1) % Immature Gran % (Auto) (0.001-0.429) % Nucleat RBC Rel Count (0.00-0.2) % Eos # (Auto) (0.04-0.36) x10^3/uL Immature Gran # (Auto) (0.001-0.031) x10^3u/L Absolute Lymphs (auto) (1.18-3.74) x10^3/uL Absolute Monos (auto) (0.24-0.86) x10^3/uL Absolute Nucleated RBC (0.00-0.012) x10^3u/L Lymphocytes % (19.3-51.7) % Monocytes % (4.7-12.5) % Eosinophils % (0.7-5.8) % Basophils % (0.1-1.2) % Absolute Granulocytes (1.56-6.13) x10^3/uL Basophils # (0.01-0.08) x10^3/uL D-Dimer < 0.19 (0.0-0.50) mg/L Sodium (135-145) mmol/L Potassium (3.5-5.1) mmol/L Chloride (98-107) mmol/L Carbon Dioxide (22-30) mmol/L Anion Gap (5-15) MEQ/L BUN (7-17) mg/dL Creatinine (0.52-1.04) mg/dL Estimated GFR ML/MIN Glucose (74-106) mg/dL Lactic Acid (0.4-2.0) Calcium (8.4-10.2) mg/dL Total Bilirubin (0.2-1.3) mg/dL AST (14-36) U/L ALT (0-35) U/L Alkaline Phosphatase (38-126) U/L Troponin I (0.000-0.033) ng/mL NT-Pro-B Natriuret Pep (<300) pg/mL Serum Total Protein (6.3-8.2) g/dL Albumin (3.5-5.0) g/dL Lipase (23-300) U/L Free T4 (0.78-2.19) ng/dL TSH 3rd Generation 0.663 (0.470-4.680) mIU/L Urine Color Yellow (Yellow) Urine Appearance Cloudy A (Clear) Urine pH 5.5 (4.6-8.0) Ur Specific Clarks 1.020 (1.005-1.030) Urine Protein Negative (Negative) Urine Glucose (UA) Negative (Negative) mg/dL Urine Ketones Trace A (Negative) Urine Blood Negative (Negative) Urine Nitrite Negative (Negative) Urine Bilirubin Negative (Negative) Urine Urobilinogen 1.0 A (0.2) mg/dL Ur Leukocyte Esterase Negative (Negative) U Hyaline Cast (Auto) 3-5 A (0-2) /LPF Urine Microscopic RBC 0-2 (0-5) /HPF Urine Microscopic WBC 0-2 (0-5) /HPF Ur Epithelial Cells Moderate A (None Seen) /HPF Urine Bacteria Moderate A (None Seen) /HPF Urine Culture Reflexed YES (NO) Influenza Type A Ag (NEGATIVE) Influenza Type B Ag (NEGATIVE) RSV (PCR) (NEGATIVE) SARS-CoV-2 (PCR) (NEGATIVE) Group A Strep Antibody (NEGATIVE) 04/01/25 04/01/25 04/01/25 Range/Units 14:50 14:59 14:59 WBC (3.98-10.04) x10^3/uL RBC (3.93-5.22) x10^6/uL Hgb (11.2-15.7) g/dL Hct (34.1-44.9) % MCV (79.4-94.8) fL MCH (25.6-32.2) pg MCHC (32.2-35.5) g/dL RDW (11.7-14.4) % Plt Count (182-369) x10^3/uL MPV (9.4-12.3) fL Gran % (34.0-71.1) % Immature Gran % (Auto) (0.001-0.429) % Nucleat RBC Rel Count (0.00-0.2) % Eos # (Auto) (0.04-0.36) x10^3/uL Immature Gran # (Auto) (0.001-0.031) x10^3u/L Absolute Lymphs (auto) (1.18-3.74) x10^3/uL Absolute Monos (auto) (0.24-0.86) x10^3/uL Absolute Nucleated RBC (0.00-0.012) x10^3u/L Lymphocytes % (19.3-51.7) % Monocytes % (4.7-12.5) % Eosinophils % (0.7-5.8) % Basophils % (0.1-1.2) % Absolute Granulocytes (1.56-6.13) x10^3/uL Basophils # (0.01-0.08) x10^3/uL D-Dimer (0.0-0.50) mg/L Sodium (135-145) mmol/L Potassium (3.5-5.1) mmol/L Chloride (98-107) mmol/L Carbon Dioxide (22-30) mmol/L Anion Gap (5-15) MEQ/L BUN (7-17) mg/dL Creatinine (0.52-1.04) mg/dL Estimated GFR ML/MIN Glucose (74-106) mg/dL Lactic Acid 1.1 (0.4-2.0) Calcium (8.4-10.2) mg/dL Total Bilirubin (0.2-1.3) mg/dL AST (14-36) U/L ALT (0-35) U/L Alkaline Phosphatase (38-126) U/L Troponin I (0.000-0.033) ng/mL NT-Pro-B Natriuret Pep (<300) pg/mL Serum Total Protein (6.3-8.2) g/dL Albumin (3.5-5.0) g/dL Lipase (23-300) U/L Free T4 (0.78-2.19) ng/dL TSH 3rd Generation (0.470-4.680) mIU/L Urine Color (Yellow) Urine Appearance (Clear) Urine pH (4.6-8.0) Ur Specific Clarks (1.005-1.030) Urine Protein (Negative) Urine Glucose (UA) (Negative) mg/dL Urine Ketones (Negative) Urine Blood (Negative) Urine Nitrite (Negative) Urine Bilirubin (Negative) Urine Urobilinogen (0.2) mg/dL Ur Leukocyte Esterase (Negative) U Hyaline Cast (Auto) (0-2) /LPF Urine Microscopic RBC (0-5) /HPF Urine Microscopic WBC (0-5) /HPF Ur Epithelial Cells (None Seen) /HPF Urine Bacteria (None Seen) /HPF Urine Culture Reflexed (NO) Influenza Type A Ag NEGATIVE (NEGATIVE) Influenza Type B Ag NEGATIVE (NEGATIVE) RSV (PCR) NEGATIVE (NEGATIVE) SARS-CoV-2 (PCR) NEGATIVE (NEGATIVE) Group A Strep Antibody NOT DETECTED (NEGATIVE) 04/01/25 04/01/25 04/02/25 Range/Units 18:40 21:25 05:25 WBC 10.1 H (3.98-10.04) x10^3/uL RBC 4.06 (3.93-5.22) x10^6/uL Hgb 11.9 (11.2-15.7) g/dL Hct 37.1 (34.1-44.9) % MCV 91.4 (79.4-94.8) fL MCH 29.3 (25.6-32.2) pg MCHC 32.1 L (32.2-35.5) g/dL RDW 13.2 (11.7-14.4) % Plt Count 212 (182-369) x10^3/uL MPV 10.4 (9.4-12.3) fL Gran % 84.8 H (34.0-71.1) % Immature Gran % (Auto) 0.8 H (0.001-0.429) % Nucleat RBC Rel Count 0.0 (0.00-0.2) % Eos # (Auto) 0 L (0.04-0.36) x10^3/uL Immature Gran # (Auto) 0.08 H (0.001-0.031) x10^3u/L Absolute Lymphs (auto) 1.34 (1.18-3.74) x10^3/uL Absolute Monos (auto) 0.09 L (0.24-0.86) x10^3/uL Absolute Nucleated RBC 0.00 (0.00-0.012) x10^3u/L Lymphocytes % 13.3 L (19.3-51.7) % Monocytes % 0.9 L (4.7-12.5) % Eosinophils % 0.0 L (0.7-5.8) % Basophils % 0.2 (0.1-1.2) % Absolute Granulocytes 8.53 H (1.56-6.13) x10^3/uL Basophils # 0.02 (0.01-0.08) x10^3/uL D-Dimer (0.0-0.50) mg/L Sodium (135-145) mmol/L Potassium (3.5-5.1) mmol/L Chloride (98-107) mmol/L Carbon Dioxide (22-30) mmol/L Anion Gap (5-15) MEQ/L BUN (7-17) mg/dL Creatinine (0.52-1.04) mg/dL Estimated GFR ML/MIN Glucose (74-106) mg/dL Lactic Acid (0.4-2.0) Calcium (8.4-10.2) mg/dL Total Bilirubin (0.2-1.3) mg/dL AST (14-36) U/L ALT (0-35) U/L Alkaline Phosphatase (38-126) U/L Troponin I < 0.012 < 0.012 (0.000-0.033) ng/mL NT-Pro-B Natriuret Pep (<300) pg/mL Serum Total Protein (6.3-8.2) g/dL Albumin (3.5-5.0) g/dL Lipase (23-300) U/L Free T4 (0.78-2.19) ng/dL TSH 3rd Generation (0.470-4.680) mIU/L Urine Color (Yellow) Urine Appearance (Clear) Urine pH (4.6-8.0) Ur Specific Clarks (1.005-1.030) Urine Protein (Negative) Urine Glucose (UA) (Negative) mg/dL Urine Ketones (Negative) Urine Blood (Negative) Urine Nitrite (Negative) Urine Bilirubin (Negative) Urine Urobilinogen (0.2) mg/dL Ur Leukocyte Esterase (Negative) U Hyaline Cast (Auto) (0-2) /LPF Urine Microscopic RBC (0-5) /HPF Urine Microscopic WBC (0-5) /HPF Ur Epithelial Cells (None Seen) /HPF Urine Bacteria (None Seen) /HPF Urine Culture Reflexed (NO) Influenza Type A Ag (NEGATIVE) Influenza Type B Ag (NEGATIVE) RSV (PCR) (NEGATIVE) SARS-CoV-2 (PCR) (NEGATIVE) Group A Strep Antibody (NEGATIVE) 04/02/25 Range/Units 05:25 WBC (3.98-10.04) x10^3/uL RBC (3.93-5.22) x10^6/uL Hgb (11.2-15.7) g/dL Hct (34.1-44.9) % MCV (79.4-94.8) fL MCH (25.6-32.2) pg MCHC (32.2-35.5) g/dL RDW (11.7-14.4) % Plt Count (182-369) x10^3/uL MPV (9.4-12.3) fL Gran % (34.0-71.1) % Immature Gran % (Auto) (0.001-0.429) % Nucleat RBC Rel Count (0.00-0.2) % Eos # (Auto) (0.04-0.36) x10^3/uL Immature Gran # (Auto) (0.001-0.031) x10^3u/L Absolute Lymphs (auto) (1.18-3.74) x10^3/uL Absolute Monos (auto) (0.24-0.86) x10^3/uL Absolute Nucleated RBC (0.00-0.012) x10^3u/L Lymphocytes % (19.3-51.7) % Monocytes % (4.7-12.5) % Eosinophils % (0.7-5.8) % Basophils % (0.1-1.2) % Absolute Granulocytes (1.56-6.13) x10^3/uL Basophils # (0.01-0.08) x10^3/uL D-Dimer (0.0-0.50) mg/L Sodium 139 (135-145) mmol/L Potassium 3.7 (3.5-5.1) mmol/L Chloride 115 H (98-107) mmol/L Carbon Dioxide 18 L (22-30) mmol/L Anion Gap 9.8 (5-15) MEQ/L BUN 7 (7-17) mg/dL Creatinine 0.72 (0.52-1.04) mg/dL Estimated GFR 96.3 ML/MIN Glucose 162 H (74-106) mg/dL Lactic Acid (0.4-2.0) Calcium 8.1 L (8.4-10.2) mg/dL Total Bilirubin < 0.10 L (0.2-1.3) mg/dL AST 29 (14-36) U/L ALT 24 (0-35) U/L Alkaline Phosphatase 106 (38-126) U/L Troponin I (0.000-0.033) ng/mL NT-Pro-B Natriuret Pep (<300) pg/mL Serum Total Protein 5.9 L (6.3-8.2) g/dL Albumin 3.4 L (3.5-5.0) g/dL Lipase (23-300) U/L Free T4 (0.78-2.19) ng/dL TSH 3rd Generation (0.470-4.680) mIU/L Urine Color (Yellow) Urine Appearance (Clear) Urine pH (4.6-8.0) Ur Specific Clarks (1.005-1.030) Urine Protein (Negative) Urine Glucose (UA) (Negative) mg/dL Urine Ketones (Negative) Urine Blood (Negative) Urine Nitrite (Negative) Urine Bilirubin (Negative) Urine Urobilinogen (0.2) mg/dL Ur Leukocyte Esterase (Negative) U Hyaline Cast (Auto) (0-2) /LPF Urine Microscopic RBC (0-5) /HPF Urine Microscopic WBC (0-5) /HPF Ur Epithelial Cells (None Seen) /HPF Urine Bacteria (None Seen) /HPF Urine Culture Reflexed (NO) Influenza Type A Ag (NEGATIVE) Influenza Type B Ag (NEGATIVE) RSV (PCR) (NEGATIVE) SARS-CoV-2 (PCR) (NEGATIVE) Group A Strep Antibody (NEGATIVE) Micro Results-Entire Visit: Microbiology 04/01/25 14:39 Urine Culture - Preliminary Urine, Void NO GROWTH TO DATE - Radiology Exams Ordered Rad Exams-Entire Visit: Radiology Procedures Category Date Time Status CHEST WITH CONTRAST [CT] Stat Exams 04/01/25 14:38 Completed - Procedures and Test Procedures and Tests throughout Hospitalization: Therapy Orders & Screens 04/01/25 16:12 Respiratory Therapy Assessment DAILY Comment: 04/01/25 17:31 Respiratory Therapy Consult ONCE Comment: Reason For Exam: 04/01/25 18:27 EKG REPEAT IN AM Comment: Diagnosis: weakness, sob Respiratory Therapy Consult ONCE Comment: Reason For Exam: Diagnosis: weakness, sob Discharge Exam General Appearance: no apparent distress Neurologic Exam: alert, oriented x 3, cooperative Eye Exam: PERRL Ears, Nose, Throat Exam: normal ENT inspection Neck Exam: normal inspection Respiratory Exam: normal breath sounds, lungs clear Cardiovascular Exam: regular rate/rhythm, normal heart sounds Gastrointestinal/Abdomen Exam: soft, normal bowel sounds Pelvic Exam: deferred Rectal Exam: deferred Back Exam: normal inspection Extremity Exam: normal inspection Skin Exam: normal color Final Diagnosis/Problem List - Final Discharge Diagnosis/Problem (1) Bronchitis Current Visit: Yes Status: Acute Assessment & Plan: CT chest negative for consolidation or PE; prior atelectasis resolved. Presentation consistent with post-viral airway inflammation following influenza. Continue prednisone 20 mg BID x 5 days for airway inflammation (received IV Solu-Medrol 125 mg in ED). Maintain scheduled and PRN Duoneb treatments for bronchospasm relief. Encourage pulmonary hygiene, incentive spirometry, and hydration. No antibiotics required beyond empiric Rocephin given in ED; monitor for signs of bacterial superinfection. If worsening respiratory symptoms, repeat imaging or obtain sputum culture Code(s): J40 - BRONCHITIS, NOT SPECIFIED ACUTE OR CHRONIC (2) UTI (urinary tract infection) Current Visit: Yes Status: Acute Assessment & Plan: UA initially showed moderate bacteria and hyaline casts; urine culture confirmed no growth, suggesting contamination rather than infection. WBC 10.1K/L likely related to viral inflammation or steroid effect rather than UTI. Ceftriaxone discontinued after negative culture. Encourage adequate oral hydration and monitor for recurrence of urinary symptoms. No further antibiotics indicated at this time. Code(s): N39.0 - URINARY TRACT INFECTION, SITE NOT SPECIFIED (3) Chest discomfort Current Visit: Yes Status: Acute Assessment & Plan: Pain reproducible with cough; no exertional or ischemic features. EKG: sinus tachycardia, RBBB, LPFB, no acute ST-T changes. Troponin: normal and trended negative. BNP: 76.2 pg/mL (normal). CT chest: no acute findings. Continue supportive therapy with guaifenesin and acetaminophen. Code(s): R07.89 - OTHER CHEST PAIN (4) Hypothyroid Current Visit: Yes Status: Acute Assessment & Plan: TSH: within normal range, indicating stable thyroid function. Continue home levothyroxine without dose adjustment. Code(s): E03.9 - HYPOTHYROIDISM, UNSPECIFIED (5) Anxiety and depression Current Visit: Yes Status: Acute Assessment & Plan: Stable mood, no acute psychiatric concerns. Continue home psychotropic regimen. Encourage rest, mindfulness, and outpatient follow-up for ongoing management. Code(s): F41.9 - ANXIETY DISORDER, UNSPECIFIED; F32.A - DEPRESSION, UNSPECIFIED (6) Prerenal azotemia Current Visit: Yes Status: Acute Assessment & Plan: Mild creatinine elevation (1.06 -now at baseline 0.72) likely from dehydration and reduced intake. Improved after 2 L IV normal saline in ED. Encourage oral fluid intake; avoid nephrotoxins (NSAIDs, contrast). Monitor renal function with repeat BMP at follow-up. Code(s): R79.89 - OTHER SPECIFIED ABNORMAL FINDINGS OF BLOOD CHEMISTRY (7) Left posterior fascicular block (LPFB) Current Visit: Yes Status: Acute Assessment & Plan: Chronic RBBB now accompanied by new LPFB on EKG. No evidence of ischemia or conduction instability. Continue outpatient cardiology follow-up for rhythm assessment. Educate patient on red-flag symptoms: syncope, lightheadedness, worsening palpitations. Code(s): I44.5 - LEFT POSTERIOR FASCICULAR BLOCK (8) Leukocytosis Current Visit: Yes Status: Acute Assessment & Plan: WBC 10.4 K/L, likely secondary to viral inflammation and corticosteroid use. Continue to monitor CBC as outpatient; no signs of systemic infection. Code(s): D72.829 - ELEVATED WHITE BLOOD CELL COUNT, UNSPECIFIED - Discharge Discharge Date: 04/02/25 Disposition: Home, Self-Care Condition: Good Prescriptions: New Prednisone 20 mg [Deltasone 20 mg] 20 mg PO BID 5 Days #10 tablet Continue LORazepam [Lorazepam] 2 mg PO HS PARoxetine HCL [Paxil] 20 mg PO HS Diclofenac Sodium 25 mg PO QAM Quetiapine Fumarate 100 mg PO HS Tizanidine HCl 4 mg PO HS Levothyroxine Sodium 75 Mcg [Synthroid 75 Mcg] 75 mcg PO DAILY Ubrogepant [Ubrelvy] 100 mg PO UD PRN PRN Reason: migraine Galcanezumab-Gnlm [Emgality Syringe] 120 mg SQ UD PARoxetine HCL [Paroxetine HCl] 10 mg PO QAM Dicyclomine HCl 20 mg [Bentyl 20 mg] 20 mg PO QAM Topiramate 50 mg PO HS Multivit-Minerals/Folic Acid [Women's Multivitamin Gummies] 2 tab PO DAILY Diphenhydramine HCl 25 mg [Benadryl 25 mg Capsule] 50 mg PO HS Follow up with: DILAN JONES MD [Primary Care Provider, INTERNAL MEDICINE] FRANCY MCGREGOR [CONSULTING PHYSICIAN, CARDIOLOGY] - Call for Appointment
[2025-04-02] MEDS ORDERED: MULTIVIT MINERALS PO SCH (10:00)
[2025-04-02] MEDS ORDERED: NON-FORMULARY ITEM (Paroxetine Hcl [Paroxetine Hcl] 10 MG Tablet) PO SCH (10:00)
[2025-04-02] MEDS ORDERED: DICLOFENAC SODIUM 25 MG PO SCH (10:00)
[2025-04-02] MEDS ORDERED: [UNRECOGNIZED DRUG - OTHER] PO SCH (10:00)
[2025-04-02] MEDS ORDERED: FOLIC ACID PO SCH (10:00)
[2025-04-02] MEDS: THERAGRAN MULTIVITAMIN PO SCH (10:17)
[2025-04-02] MEDS: Paxil 20 MG PO SCH (10:17)
[2025-04-02] MEDS: Protonix 40MG Tablet PO SCH (10:18)
[2025-04-02] MEDS: BENTYL 20 MG PO SCH (10:18)
[2025-04-02] MEDS: SYNTHROID 75 MCG PO SCH (10:18)
[2025-04-02] MEDS: ROCEPHIN 1 GM / 100 ML NaCl 1 GM/100 ML IVPB IV SCH (10:31)
[2025-04-02 12:18] VITALS: BP 95/60; PULSE 73
== END 2025-04-02 12:10 | disposition home or self-care (01) ==
LOC: ED 14:17 → MED SURG 17:29
PROVIDERS: ADMIT Internal Medicine; ATTEND Internal Medicine
DX: J40 Bronchitis, not specified as acute or chronic (principal); N39.0 Urinary tract infection, site not specified; R07.89 Other chest pain; E03.9 Hypothyroidism, unspecified; F41.9 Anxiety disorder, unspecified; F32.A Depression, unspecified; R06.02 Shortness of breath; R79.89 Other specified abnormal findings of blood chemistry; I44.5 Left posterior fascicular block; D72.829 Elevated white blood cell count, unspecified; Z79.899 Other long term (current) drug therapy
CPT/HCPCS: 36415; 71260; 80053; 81001; 83605; 83690; 83880; 84439; 84443; 84484; 85025; 85379; 87040; 87086; 87637; 87651; 93005; 93041; 93268; 94640; 94760; 96360; 96365; 99285; G0378